=== PATIENT | female | born 1960 | race Caucasian/White ===

== ENCOUNTER 2016-12-13 05:07 | Emergency (ER) | payer OTHER ==
[2016-12-13 05:12] VITALS: BP 171/90; PULSE 107; RESP 18; TEMP 97.8
[2016-12-13] MEDS ORDERED: Acetaminophen-Codeine 300-30mg TAB PO STA (05:30)
[2016-12-13] MEDS ORDERED: predniSONE 20 MG TAB PO STA (05:30)
--- NOTE | 2016-12-13 05:31 | ED ---
General Adult HPI - General Chief complaint: Extremity Injury, Upper Stated complaint: Arm Pain Time Seen by Provider: 12/13/16 05:24 Source: patient, RN notes reviewed, old records reviewed Mode of arrival: ambulatory Limitations: no limitations - History of Present Illness Initial comments: This is a 26-year-old female the ER for evaluation. Patient presents here for evaluation of arm pain shoulder pain. Right shoulder pain. History of shoulder pain. Strain of shoulder. Patient just complains of numbness and tingling in that shoulder. Denies any trauma. - Related Data Home Medications Medication Instructions Recorded Confirmed FLUoxetine HCL [PROzac] 60 mg PO DAILY 11/13/14 12/13/16 OLANZapine [ZyPREXA] 20 mg PO DAILY 11/13/14 12/13/16 Gabapentin [Neurontin] 400 mg PO TID 02/18/15 12/13/16 Previous Rx's Medication Instructions Recorded Acetaminophen with Codeine 1 tab PO Q4H PRN #20 tab 12/13/16 [Tylenol w/codeine #3] predniSONE 50 mg PO DAILY #5 tab 12/13/16 Allergies Allergy/AdvReac Type Severity Reaction Status Date / Time cephalexin monohydrate Allergy Unknown Verified 12/13/16 05:12 [From Keflex] doxycycline Allergy Unknown Verified 12/13/16 05:12 Review of Systems ROS Statement: Those systems with pertinent positive or pertinent negative responses have been documented in the HPI. ROS Other: All systems not noted in ROS Statement are negative. Past Medical History Past Medical History: No Reported History Additional Past Medical History / Comment(s): kidney stones chronic back pain History of Any Multi-Drug Resistant Organisms: None Reported Past Surgical History: Orthopedic Surgery Additional Past Surgical History / Comment(s): chico forearms Past Psychological History: No Psychological Hx Reported, Anxiety, Depression, PTSD Smoking Status: Current every day smoker Past Alcohol Use History: None Reported Past Drug Use History: None Reported General Exam Limitations: no limitations General appearance: alert, in no apparent distress Head exam: Present: atraumatic, normocephalic, normal inspection Eye exam: Present: normal appearance, PERRL, EOMI. Absent: scleral icterus, conjunctival injection, periorbital swelling ENT exam: Present: normal exam, mucous membranes moist Neck exam: Present: normal inspection. Absent: tenderness, meningismus, lymphadenopathy Respiratory exam: Present: normal lung sounds bilaterally. Absent: respiratory distress, wheezes, rales, rhonchi, stridor Cardiovascular Exam: Present: regular rate, normal rhythm, normal heart sounds. Absent: systolic murmur, diastolic murmur, rubs, gallop, clicks GI/Abdominal exam: Present: soft, normal bowel sounds. Absent: distended, tenderness, guarding, rebound, rigid Extremities exam: Present: normal inspection, full ROM, normal capillary refill. Absent: tenderness, pedal edema, joint swelling, calf tenderness Back exam: Present: normal inspection Neurological exam: Present: alert, oriented X3, CN II-XII intact Psychiatric exam: Present: normal affect, normal mood Skin exam: Present: warm, dry, intact, normal color. Absent: rash Course Vital Signs 12/13/16 12/13/16 05:10 06:15 Temperature 97.8 F 97.8 F Pulse Rate 107 H 107 H Respiratory 18 18 Rate Blood Pressure 171/90 171/90 O2 Sat by Pulse 97 97 Oximetry Medical Decision Making - Medical Decision Making 56 female with right shoulder strain, will treat with appropriate medications and discharged home Disposition Clinical Impression: Strain of shoulder Disposition: HOME SELF-CARE Condition: Good Instructions: Rotator Cuff Tendinitis (ED), Shoulder Sprain (ED) Prescriptions: Acetaminophen with Codeine [Tylenol w/codeine #3] 1 tab PO Q4H PRN #20 tab PRN Reason: Pain predniSONE 50 mg PO DAILY #5 tab Referrals: Farnaz Aly MD [Primary Care Provider] - 1-2 days
== END 2016-12-13 06:21 | disposition home or self-care (01) ==
LOC: EC 05:07
DX: S46.911A Strain of unspecified muscle, fascia and tendon at shoulder and upper arm level, right arm, initial encounter (principal); F41.9 Anxiety disorder, unspecified; F32.9 Major depressive disorder, single episode, unspecified; F43.10 Post-traumatic stress disorder, unspecified; F17.200 Nicotine dependence, unspecified, uncomplicated; Z79.899 Other long term (current) drug therapy; Z88.1 Allergy status to other antibiotic agents; W19.XXXA Unspecified fall, initial encounter
CPT/HCPCS: 99283; J7512

== ENCOUNTER 2017-12-30 06:50 | Emergency (ER) | payer OTHER ==
[2017-12-30 06:58] VITALS: BP 171/90; PULSE 85; TEMP 96.9
[2017-12-30] MEDS ORDERED: LORazepam 1 MG TAB PO STA (07:19)
--- NOTE | 2017-12-30 07:25 | ED ---
General Adult HPI - General Chief complaint: Anxiety Stated complaint: Anxiety Time Seen by Provider: 12/30/17 07:12 Source: patient, RN notes reviewed Mode of arrival: ambulatory Limitations: no limitations - History of Present Illness Initial comments: Patient is a pleasant 57-year-old female presenting to the emergency department with concerns regarding her anxiety. Patient does have chronic anxiety. Patient restarted her Zyprexa and Prozac close to 3 weeks ago. Patient does go to [facility] and [facility]. They did not prescribe her anything short-term for anxiety. Patient denies any suicidal or homicidal thoughts. No physical complaints except for her skin picking. Patient requests some medication for this. Patient has recently became homeless. Patient is aware where home shelters are and does check in with him. - Related Data Home Medications Medication Instructions Recorded Confirmed FLUoxetine HCL [PROzac] 60 mg PO DAILY 11/13/14 12/13/16 OLANZapine [ZyPREXA] 20 mg PO DAILY 11/13/14 12/13/16 Gabapentin [Neurontin] 400 mg PO TID 02/18/15 12/13/16 Previous Rx's Medication Instructions Recorded Acetaminophen with Codeine 1 tab PO Q4H PRN #20 tab 12/13/16 [Tylenol w/codeine #3] predniSONE 50 mg PO DAILY #5 tab 12/13/16 Acetaminophen-Codeine 300-30mg 1 tab PO Q4H PRN #20 tablet 05/11/17 [Tylenol #3] Ibuprofen [Motrin] 600 mg PO Q8HR PRN #30 tab 05/11/17 Allergies Allergy/AdvReac Type Severity Reaction Status Date / Time cephalexin monohydrate Allergy Unknown Verified 12/30/17 06:58 [From Keflex] doxycycline Allergy Unknown Verified 12/30/17 06:58 Review of Systems ROS Statement: Those systems with pertinent positive or pertinent negative responses have been documented in the HPI. ROS Other: All systems not noted in ROS Statement are negative. Constitutional: Denies: fever Eyes: Denies: eye pain ENT: Denies: ear pain Respiratory: Denies: cough Cardiovascular: Denies: chest pain Endocrine: Denies: fatigue Gastrointestinal: Denies: abdominal pain Genitourinary: Denies: dysuria Musculoskeletal: Denies: back pain Skin: Reports: lesions (scalp) Neurological: Denies: weakness Psychiatric: Reports: anxiety. Denies: homicidal thoughts, suicidal thoughts Past Medical History Past Medical History: Seizure Disorder Additional Past Medical History / Comment(s): kidney stones chronic back pain History of Any Multi-Drug Resistant Organisms: None Reported Past Surgical History: Orthopedic Surgery Additional Past Surgical History / Comment(s): chico forearms Past Psychological History: No Psychological Hx Reported, Anxiety, Depression, PTSD Smoking Status: Heavy tobacco smoker Past Alcohol Use History: None Reported Past Drug Use History: None Reported General Exam Limitations: no limitations General appearance: alert, in no apparent distress Head exam: Present: atraumatic Eye exam: Present: normal appearance, PERRL ENT exam: Present: normal oropharynx Neck exam: Present: normal inspection Respiratory exam: Present: normal lung sounds bilaterally Cardiovascular Exam: Present: regular rate, normal rhythm GI/Abdominal exam: Present: soft. Absent: tenderness Extremities exam: Present: normal inspection, other (Old well-healed wrist abrasions) Neurological exam: Present: alert Psychiatric exam: Present: normal affect, normal mood Skin exam: Present: other (Scalp with several small areas of skin breakdown a mild erythema. Consistent with picking.) Course Vital Signs 12/30/17 06:55 Temperature 96.9 F L Pulse Rate 85 Respiratory 20 Rate Blood Pressure 171/90 O2 Sat by Pulse 99 Oximetry Disposition Clinical Impression: Acute anxiety Disposition: HOME SELF-CARE Condition: Stable Instructions: Generalized Anxiety Disorder (ED) Additional Instructions: Please follow-up with primary care physician, and [facility] and the next day or 2 for recheck. Use [id number] medicated shampoo with sink such as Selsun Blue her head and shoulders. Return for worsening symptoms , thoughts of self-harm or hurting others, depression, or other concerns. Is patient prescribed a controlled substance at d/c from ED?: No Referrals: [facility] [Primary Care Provider] - 1-2 days Time of Disposition: 07:24
[2017-12-30 07:29] VITALS: RESP 17
== END 2017-12-30 07:38 | disposition home or self-care (01) ==
LOC: EC 06:50
DX: F41.9 Anxiety disorder, unspecified (principal); G40.909 Epilepsy, unspecified, not intractable, without status epilepticus; F32.9 Major depressive disorder, single episode, unspecified; F43.10 Post-traumatic stress disorder, unspecified; F17.200 Nicotine dependence, unspecified, uncomplicated; Z79.899 Other long term (current) drug therapy; Z88.1 Allergy status to other antibiotic agents
CPT/HCPCS: 99283

== ENCOUNTER 2018-05-02 11:39 | Emergency (ER) | payer OTHER ==
[2018-05-02] MEDS ORDERED: SODIUM CHLORIDE 0.9% 1,000 ML IV STA (12:03)
--- NOTE | 2018-05-02 12:08 | ED ---
General Adult HPI - General Chief complaint: Chest Pain Stated complaint: Chest Pain Time Seen by Provider: 05/02/18 11:47 Source: patient, RN notes reviewed Mode of arrival: ambulatory Limitations: no limitations - History of Present Illness Initial comments: Patient 57-year-old female presenting to the emergency room today with chief complaint of right-sided chest pain. She does admit that she's had cough congestion over the last week. Does admit that she's had some sputum production as been dark in color. Patient states that when she takes deep breaths she's had pain in the right side of her ribs. She states this started approximately a week ago as well. She does admit that she is resting comfortably she is pain-free. Patient also admits that she had an episode nausea vomiting after coughing so hard today. Patient denies any other complaints or symptoms. Patient denies any recent fever, chills, shortness of breath, back pain, abdominal pain numbness or tingling, headaches or visual changes, or any other complaints. - Related Data Home Medications Medication Instructions Recorded Confirmed FLUoxetine HCL [PROzac] 40 mg PO DAILY 05/02/18 05/02/18 Gabapentin [Neurontin] 400 mg PO TID 05/02/18 05/02/18 OLANZapine [ZyPREXA] 15 mg PO HS 05/02/18 05/02/18 Previous Rx's Medication Instructions Recorded Albuterol Inhaler [Ventolin Hfa 1 - 2 puff INHALATION Q4-6H PRN #1 05/02/18 Inhaler] inhaler Azithromycin [Zithromax Z-pack] 0 mg PO DIRECTED #6 tab 05/02/18 Benzonatate [Tessalon Perles] 100 mg PO TID PRN #20 capsule 05/02/18 Ibuprofen [Motrin] 600 mg PO Q6HR PRN #30 day 05/02/18 Allergies Allergy/AdvReac Type Severity Reaction Status Date / Time cephalexin monohydrate Allergy Unknown Verified 05/02/18 12:32 [From Keflex] doxycycline Allergy Unknown Verified 05/02/18 12:32 Review of Systems ROS Statement: Those systems with pertinent positive or pertinent negative responses have been documented in the HPI. ROS Other: All systems not noted in ROS Statement are negative. Past Medical History Past Medical History: Seizure Disorder Additional Past Medical History / Comment(s): kidney stones chronic back pain History of Any Multi-Drug Resistant Organisms: None Reported Past Surgical History: Orthopedic Surgery Additional Past Surgical History / Comment(s): chico forearms Past Psychological History: No Psychological Hx Reported, Anxiety, Depression, PTSD Smoking Status: Heavy tobacco smoker Past Alcohol Use History: None Reported Past Drug Use History: None Reported General Exam - General Exam Comments Initial Comments: General: The patient is awake and alert, in no distress, and does not appear acutely ill. Eye: Pupils are equal, round and reactive to light, extra-ocular movements are intact. No nystagmus. There is normal conjunctiva bilaterally. No signs of icterus. Ears, nose, mouth and throat: There are moist mucous membranes and no oral lesions. Neck: The neck is supple, there is no tenderness or JVD. Cardiovascular: There is a regular rate and rhythm. No murmur, rub or gallop is appreciated. Respiratory: Bilateral expiratory wheeze. Respirations are non-labored, breath sounds are equal. No stridor, rales, or rhonchi. Gastrointestinal: Soft, non-distended, non-tender abdomen without masses or organomegaly noted. There is no rebound or guarding present. No CVA tenderness. Musculoskeletal: Normal ROM, no tenderness. Strength 5/5. Sensation intact. Pulses equal bilaterally 2+. Neurological: A&O x 3. CN II-XII intact, There are no obvious motor or sensory deficits. Coordination appears grossly intact. Speech is normal. Skin: Skin is warm and dry and no rashes or lesions are noted. Psychiatric: Cooperative, appropriate mood & affect, normal judgment. Limitations: no limitations Course Vital Signs 05/02/18 05/02/18 05/02/18 11:43 12:54 13:50 Temperature 98.3 F Pulse Rate 108 H 88 92 Respiratory 18 15 18 Rate Blood Pressure 158/111 157/106 172/105 O2 Sat by Pulse 98 95 96 Oximetry 05/02/18 05/02/18 05/02/18 15:15 16:01 16:12 Temperature 97.5 F L Pulse Rate 94 91 90 Respiratory 15 Rate Blood Pressure 167/99 O2 Sat by Pulse 97 Oximetry 05/02/18 16:38 Temperature Pulse Rate 92 Respiratory 18 Rate Blood Pressure 145/97 O2 Sat by Pulse 94 L Oximetry EKG Findings - EKG Comments: EKG Findings:: EKG performed at 1224: Shows normal sinus rhythm at 85 beats per minute. MI 180. QRS is 92. QT/QTC 386/459. No acute ST changes. Medical Decision Making - Medical Decision Making Patient's CT of the chest reviewed and shows no evidence of PE. Mild central lobular pulmonary emphysema and minimal bibasilar. Bronchial cuffing that can be seen in reactive small airway disease with possible underlying emphysema or bronchitis/infectious airway disease. Patient given dose of Rocephin here in the emergency room. Patient has had 2 troponins here in the emergency room which are negative. Patient's pain is felt to be muscular skeletal she's had increased cough congestion and states that when she is laying still she is pain- free. She states pain is reproduced with deep breath and with coughing. Patient will be treated with anti-inflammatories for pain. Continued on antibiotics to cover for infection with azithromycin. Will be given an albuterol inhaler along with cough medication for her symptoms. She is advised follow-up family doctor over the next 2 days returning if symptoms increase or worsen. - Lab Data Result diagrams: 05/02/18 12:40 05/02/18 12:40 Lab Results 05/02/18 05/02/18 05/02/18 Range/Units 12:40 12:40 12:40 WBC 6.5 (3.8-10.6) k/uL RBC 4.89 (3.80-5.40) m/uL Hgb 13.9 (11.4-16.0) gm/dL Hct 41.7 (34.0-46.0) % MCV 85.3 (80.0-100.0) fL MCH 28.3 (25.0-35.0) pg MCHC 33.2 (31.0-37.0) g/dL RDW 15.5 (11.5-15.5) % Plt Count 284 (150-450) k/uL Neutrophils % 60 % Lymphocytes % 25 % Monocytes % 10 % Eosinophils % 2 % Basophils % 1 % Neutrophils # 3.9 (1.3-7.7) k/uL Lymphocytes # 1.6 (1.0-4.8) k/uL Monocytes # 0.6 (0-1.0) k/uL Eosinophils # 0.1 (0-0.7) k/uL Basophils # 0.0 (0-0.2) k/uL PT 9.4 (9.0-12.0) sec INR 0.9 (<1.2) APTT 23.1 (22.0-30.0) sec D-Dimer 0.37 (<0.60) mg/L FEU Sodium 143 (137-145) mmol/L Potassium 4.3 (3.5-5.1) mmol/L Chloride 105 (98-107) mmol/L Carbon Dioxide 31 H (22-30) mmol/L Anion Gap 7 mmol/L BUN 20 H (7-17) mg/dL Creatinine 0.64 (0.52-1.04) mg/dL Est GFR (CKD-EPI)AfAm >90 (>60 ml/min/1.73 sqM) Est GFR (CKD-EPI)NonAf >90 (>60 ml/min/1.73 sqM) Glucose 90 (74-99) mg/dL Calcium 9.9 (8.4-10.2) mg/dL Total Bilirubin 0.4 (0.2-1.3) mg/dL AST 43 H (14-36) U/L ALT 63 H (9-52) U/L Alkaline Phosphatase 112 (38-126) U/L Total Creatine Kinase (30-135) U/L CK-MB (CK-2) (0.0-2.4) ng/mL CK-MB (CK-2) Rel Index Troponin I (0.000-0.034) ng/mL Total Protein 8.0 (6.3-8.2) g/dL Albumin 4.3 (3.5-5.0) g/dL Urine Color Urine Appearance (Clear) Urine pH (5.0-8.0) Ur Specific Sewell (1.001-1.035) Urine Protein (Negative) Urine Glucose (UA) (Negative) Urine Ketones (Negative) Urine Blood (Negative) Urine Nitrite (Negative) Urine Bilirubin (Negative) Urine Urobilinogen (<2.0) mg/dL Ur Leukocyte Esterase (Negative) Urine RBC (0-5) /hpf Urine WBC (0-5) /hpf Ur Squamous Epith Cells (0-4) /hpf Amorphous Sediment (None) /hpf Urine Mucus (None) /hpf 11/26/18 11/26/18 11/26/18 Range/Units 12:40 12:40 15:40 WBC (3.8-10.6) k/uL RBC (3.80-5.40) m/uL Hgb (11.4-16.0) gm/dL Hct (34.0-46.0) % MCV (80.0-100.0) fL MCH (25.0-35.0) pg MCHC (31.0-37.0) g/dL RDW (11.5-15.5) % Plt Count (150-450) k/uL Neutrophils % % Lymphocytes % % Monocytes % % Eosinophils % % Basophils % % Neutrophils # (1.3-7.7) k/uL Lymphocytes # (1.0-4.8) k/uL Monocytes # (0-1.0) k/uL Eosinophils # (0-0.7) k/uL Basophils # (0-0.2) k/uL PT (9.0-12.0) sec INR (<1.2) APTT (22.0-30.0) sec D-Dimer (<0.60) mg/L FEU Sodium (137-145) mmol/L Potassium (3.5-5.1) mmol/L Chloride (98-107) mmol/L Carbon Dioxide (22-30) mmol/L Anion Gap mmol/L BUN (7-17) mg/dL Creatinine (0.52-1.04) mg/dL Est GFR (CKD-EPI)AfAm (>60 ml/min/1.73 sqM) Est GFR (CKD-EPI)NonAf (>60 ml/min/1.73 sqM) Glucose (74-99) mg/dL Calcium (8.4-10.2) mg/dL Total Bilirubin (0.2-1.3) mg/dL AST (14-36) U/L ALT (9-52) U/L Alkaline Phosphatase (38-126) U/L Total Creatine Kinase 36 (30-135) U/L CK-MB (CK-2) 0.7 (0.0-2.4) ng/mL CK-MB (CK-2) Rel Index 1.9 Troponin I <0.012 <0.012 (0.000-0.034) ng/mL Total Protein (6.3-8.2) g/dL Albumin (3.5-5.0) g/dL Urine Color Light Yellow Urine Appearance Cloudy H (Clear) Urine pH 7.0 (5.0-8.0) Ur Specific [place]ell 1.015 (1.001-1.035) Urine Protein Negative (Negative) Urine Glucose (UA) Negative (Negative) Urine Ketones Negative (Negative) Urine Blood Trace H (Negative) Urine Nitrite Negative (Negative) Urine Bilirubin Negative (Negative) Urine Urobilinogen <2.0 (<2.0) mg/dL Ur Leukocyte Esterase Negative (Negative) Urine RBC 5 (0-5) /hpf Urine WBC 3 (0-5) /hpf Ur Squamous Epith Cells <1 (0-4) /hpf Amorphous Sediment Few H (None) /hpf Urine Mucus Rare H (None) /hpf Disposition Clinical Impression: Acute bronchitis Disposition: HOME SELF-CARE Condition: Good Instructions: Acute Bronchitis (ED) Additional Instructions: Please use medication as discussed. Please follow-up with family doctor in the next 2 days of symptoms have not improved. Please return to emergency room if the symptoms increase or worsen or for any other concerns. Prescriptions: Albuterol Inhaler [Ventolin Hfa Inhaler] 1 - 2 puff INHALATION Q4-6H PRN #1 inhaler PRN Reason: Cough Azithromycin [Zithromax Z-pack] 0 mg PO DIRECTED #6 tab Benzonatate [Tessalon Perles] 100 mg PO TID PRN #20 capsule PRN Reason: Cough Ibuprofen [Motrin] 600 mg PO Q6HR PRN #30 day PRN Reason: Pain Is patient prescribed a controlled substance at d/c from ED?: No Referrals: [facility] [Primary Care Provider] - 1-2 days Time of Disposition: 16:45
[2018-05-02 13:02] LABS: Basophils % (A) 1 %; Eosinophils # (A) 0.1 k/uL (0-0.7); Eosinophils % (A) 2 %; HCT 41.7 % (34.0-46.0); HGB 13.9 gm/dL (11.4-16.0); Lymphocytes # (A) 1.6 k/uL (1.0-4.8); Lymphocytes % (A) 25 %; MCH 28.3 pg (25.0-35.0); MCHC 33.2 g/dL (31.0-37.0); MCV 85.3 fL (80.0-100.0); Mean Platelet Volume 6.8; Monocytes # (A) 0.6 k/uL (0-1.0); Monocytes % (A) 10 %; Neutrophils # (A) 3.9 k/uL (1.3-7.7); Neutrophils % (A) 60 %; Platelet Count 284 k/uL (150-450); RBC 4.89 m/uL (3.80-5.40); RDW 15.5 % (11.5-15.5); WBC 6.5 k/uL (3.8-10.6)
[2018-05-02 13:06] LABS: Amorphous Sediment,Urine Few /hpf; Appearance,Urine Cloudy (Clear); Bilirubin,Urine Negative (Negative); Blood,Urine Trace (Negative); Color,Urine Light Yellow; Glucose,Urine (UA) Negative (Negative); Ketones,Urine Negative (Negative); Leukocyte Esterase,Urine Negative (Negative); Mucus,Urine Rare /hpf; Nitrite,Urine Negative (Negative); Protein,Urine Negative (Negative); RBC,Urine 5 /hpf (0-5); Specific Gravity,Urine 1.015 (1.001-1.035); Squamous Epithelial Cell,Urine <1 /hpf (0-4); Urobilinogen,Urine <2.0 mg/dL (<2.0)
[2018-05-02 13:08] LABS: ALT 63 U/L (9-52); AST 43 U/L (14-36); Albumin 4.3 g/dL (3.5-5.0); Alkaline Phosphatase 112 U/L (38-126); Anion Gap 7 mmol/L; Blood Urea Nitrogen 20 mg/dL (7-17); Calcium 9.9 mg/dL (8.4-10.2); Carbon Dioxide 31 mmol/L (22-30); Chloride 105 mmol/L (98-107); Glucose 90 mg/dL (74-99); Potassium 4.3 mmol/L (3.5-5.1); Sodium 143 mmol/L (137-145); Total Bilirubin 0.4 mg/dL (0.2-1.3)
--- NOTE | 2018-05-02 13:14 | XR ---
EXAMINATION TYPE: XR chest 2V DATE OF EXAM: 05/02/2018 COMPARISON: 08/30/2015 HISTORY: Chest pain TECHNIQUE: Frontal and lateral views of the chest are obtained. FINDINGS: There is no focal air space opacity, pleural effusion, or pneumothorax seen. There is haris ntration of the right hemidiaphragm. The cardiac silhouette size is within normal limits. The osseo us structures are intact. IMPRESSION: No acute cardiopulmonary process.
[2018-05-02 13:18] LABS: Creatine Kinase 36 U/L (30-135)
[2018-05-02 13:20] LABS: D-Dimer 0.37 mg/L FEU (<0.60); INR 0.9 (<1.2); Partial Thromboplastin Time 23.1 sec (22.0-30.0); Prothrombin Time 9.4 sec (9.0-12.0)
[2018-05-02 13:31] LABS: Creatine Kinase MB 0.7 ng/mL (0.0-2.4); Troponin I <0.012 ng/mL (0.000-0.034)
[2018-05-02] MEDS ORDERED: LISINOPRIL 10 MG TAB PO STA (14:03)
[2018-05-02] MEDS ORDERED: IPRATROPIUM-ALBUTEROL 3 ML NEB INHALATION STA (15:14)
[2018-05-02 15:18] VITALS: TEMP 97.5
--- NOTE | 2018-05-02 15:56 | CT ---
EXAMINATION TYPE: CT angio chest DATE OF EXAM: 05/02/2018 COMPARISON: Chest radiograph dated 05/02/2018. HISTORY: Chest pain and difficulty breathing. CT DLP: 241.9 mGycm. Automated Exposure Control for Dose Reduction was Utilized. CONTRAST: CTA scan of the thorax is performed with IV Contrast, patient injected with 62 mL of Isovue 370, pulm onary embolism protocol. MIP Images are created on CT scanner and reviewed. FINDINGS: LUNGS: Mild centrilobular emphysematous changes are most exaggerated at the lung apices. Minimal biba silar subsegmental dependent atelectasis is appreciated in addition to bibasilar minimal peribronchia l cuffing. Scattered blebs are noted in the left lower lobe. There is no pleural effusion or pneumoth orax seen. The tracheobronchial tree is patent. MEDIASTINUM: There is satisfactory enhancement of the pulmonary artery and its branches, there is no CT evidence for pulmonary embolism. There are no greater than 1 cm hilar or mediastinal lymph nodes. No cardiomegaly or pericardial effusion is seen. OTHER: Evaluation of the liver is limited on the angiographic phase. Minimal multilevel degenerative changes of the thoracic spine are seen. IMPRESSION: 1. No evidence of pulmonary embolus. 2. Mild centrilobular pulmonary emphysema and minimal bibasilar peribronchial cuffing that can be see n in reactive small airway disease in this patient with underlying emphysema or bronchitis/infectious airway disease.
[2018-05-02] MEDS ORDERED: KETOROLAC 30 MG/ML 1 ML VIAL IVP STA (16:40)
[2018-05-02 17:20] VITALS: BP 145/73; PULSE 90; RESP 20
== END 2018-05-02 17:25 | disposition home or self-care (01) ==
LOC: EC 11:39
DX: J20.9 Acute bronchitis, unspecified (principal); F41.9 Anxiety disorder, unspecified; F32.9 Major depressive disorder, single episode, unspecified; G40.909 Epilepsy, unspecified, not intractable, without status epilepticus; F17.200 Nicotine dependence, unspecified, uncomplicated; Z79.899 Other long term (current) drug therapy
CPT/HCPCS: 36415; 94640; 93005; 85379; 80053; 82550; 82553; 84484; 85025; 85610; 85730; 81001; 71046; 71275; 99285; 96365; 96375; 96361; J0696; J1885; Q9967

== ENCOUNTER 2018-08-04 10:36 | Emergency (ER) | payer OTHER ==
[2018-08-04 11:00] VITALS: TEMP 98.2
[2018-08-04] MEDS ORDERED: SODIUM CHLORIDE 0.9% 1,000 ML IV STA (11:23)
--- NOTE | 2018-08-04 11:35 | ED ---
Nausea/Vomiting/Diarrhea HPI - General Chief complaint: Nausea/Vomiting/Diarrhea Stated complaint: diarrhea Time Seen by Provider: 08/04/18 11:19 Source: patient, RN notes reviewed Mode of arrival: ambulatory Limitations: no limitations - History of Present Illness Initial comments: 57-year-old female presents emergency Department with chief complaint of increasing diarrhea. Patient states that she's had symptoms on and off for last 6 weeks. Patient states that she's noticed with eating especially fatty greasy food that she has worsening symptoms. Patient states it's concerns to all watery. She denies any melena or hematochezia no recent antibiotic use no history of bowel infections including C. diff, colitis. Patient denies any localized pain medication and she has some right quadrant pain. Patient denies any fever, chills, chest pain, shortness breath. She states she just feels rundown from her diarrhea. - Related Data Home Medications Medication Instructions Recorded Confirmed FLUoxetine HCL [PROzac] 60 mg PO DAILY 05/02/18 08/04/18 Atorvastatin [Lipitor] 20 mg PO HS 08/04/18 08/04/18 Ergocalciferol (Vitamin D2) 50,000 unit PO Q7D 08/04/18 08/04/18 [Vitamin D2] Gabapentin 600 mg PO TID 08/04/18 08/04/18 Lisinopril [Zestril] 10 mg PO DAILY 08/04/18 08/04/18 hydrOXYzine PAMOATE [Vistaril] 25 mg PO TID 08/04/18 08/04/18 traZODone HCL [Desyrel] 300 mg PO HS 08/04/18 08/04/18 Allergies Allergy/AdvReac Type Severity Reaction Status Date / Time cephalexin monohydrate Allergy Unknown Verified 08/04/18 11:33 [From Keflex] doxycycline Allergy Unknown Verified 08/04/18 11:33 Review of Systems ROS Statement: Those systems with pertinent positive or pertinent negative responses have been documented in the HPI. ROS Other: All systems not noted in ROS Statement are negative. Past Medical History Past Medical History: Seizure Disorder Additional Past Medical History / Comment(s): kidney stones chronic back pain History of Any Multi-Drug Resistant Organisms: None Reported Past Surgical History: Orthopedic Surgery Additional Past Surgical History / Comment(s): chico forearms Past Psychological History: No Psychological Hx Reported, Anxiety, Depression, PTSD Smoking Status: Heavy tobacco smoker Past Alcohol Use History: None Reported Past Drug Use History: None Reported General Exam Limitations: no limitations General appearance: alert, in no apparent distress Head exam: Present: atraumatic, normocephalic, normal inspection Eye exam: Present: normal appearance, PERRL, EOMI. Absent: scleral icterus, conjunctival injection, periorbital swelling ENT exam: Present: normal exam, normal oropharynx, mucous membranes moist Neck exam: Present: normal inspection. Absent: tenderness, meningismus, lymphadenopathy Respiratory exam: Present: normal lung sounds bilaterally. Absent: respiratory distress, wheezes, rales, rhonchi, stridor Cardiovascular Exam: Present: regular rate, normal rhythm, normal heart sounds. Absent: systolic murmur, diastolic murmur, rubs, gallop, clicks GI/Abdominal exam: Present: soft, tenderness, normal bowel sounds. Absent: distended, guarding, rebound, rigid Back exam: Absent: CVA tenderness (R), CVA tenderness (L) Neurological exam: Present: alert, oriented X3, CN II-XII intact Skin exam: Present: warm, dry, intact, normal color. Absent: rash Course Vital Signs 08/04/18 08/04/18 10:58 12:25 Temperature 98.2 F Pulse Rate 75 59 L Respiratory 16 14 Rate Blood Pressure 124/78 120/81 O2 Sat by Pulse 95 98 Oximetry Medical Decision Making - Medical Decision Making 57-year-old female presents emergency Department chief complaint of diarrhea and intermittent worse with eating. Ultrasound shows multiple gallstones consider HIDA scan. Laboratory unremarkable. Patient will follow-up on-call surgery Dr. Jennings. Return parameters were discussed. - Lab Data Result diagrams: 08/04/18 11:54 08/04/18 11:54 Lab Results 08/04/18 08/04/18 Range/Units 11:54 11:54 WBC 5.1 (3.8-10.6) k/uL RBC 4.81 (3.80-5.40) m/uL Hgb 13.4 (11.4-16.0) gm/dL Hct 41.1 (34.0-46.0) % MCV 85.3 (80.0-100.0) fL MCH 27.9 (25.0-35.0) pg MCHC 32.7 (31.0-37.0) g/dL RDW 14.4 (11.5-15.5) % Plt Count 227 (150-450) k/uL Neutrophils % 57 % Lymphocytes % 31 % Monocytes % 7 % Eosinophils % 2 % Basophils % 1 % Neutrophils # 2.9 (1.3-7.7) k/uL Lymphocytes # 1.6 (1.0-4.8) k/uL Monocytes # 0.4 (0-1.0) k/uL Eosinophils # 0.1 (0-0.7) k/uL Basophils # 0.0 (0-0.2) k/uL Sodium 140 (137-145) mmol/L Potassium 4.1 (3.5-5.1) mmol/L Chloride 108 H (98-107) mmol/L Carbon Dioxide 25 (22-30) mmol/L Anion Gap 7 mmol/L BUN 19 H (7-17) mg/dL Creatinine 0.99 (0.52-1.04) mg/dL Est GFR (CKD-EPI)AfAm 74 (>60 ml/min/1.73 sqM) Est GFR (CKD-EPI)NonAf 65 (>60 ml/min/1.73 sqM) Glucose 100 H (74-99) mg/dL Calcium 9.7 (8.4-10.2) mg/dL Total Bilirubin 0.5 (0.2-1.3) mg/dL AST 17 (14-36) U/L ALT 27 (9-52) U/L Alkaline Phosphatase 89 (38-126) U/L Total Protein 7.2 (6.3-8.2) g/dL Albumin 4.2 (3.5-5.0) g/dL Lipase 67 (23-300) U/L Disposition Clinical Impression: Cholelithiasis, Diarrhea Disposition: HOME SELF-CARE Condition: Stable Instructions (If sedation given, give patient instructions): Acute Diarrhea (ED ), Gallstones (ED) Additional Instructions: Please return to the Emergency Department if symptoms worsen or any other concerns. Is patient prescribed a controlled substance at d/c from ED?: No [facility] - 1-2 days Dash Jennings MD [STAFF PHYSICIAN] - 1-2 days
[2018-08-04 12:19] LABS: Basophils % (A) 1 %; Eosinophils # (A) 0.1 k/uL (0-0.7); Eosinophils % (A) 2 %; HCT 41.1 % (34.0-46.0); HGB 13.4 gm/dL (11.4-16.0); Lymphocytes # (A) 1.6 k/uL (1.0-4.8); Lymphocytes % (A) 31 %; MCH 27.9 pg (25.0-35.0); MCHC 32.7 g/dL (31.0-37.0); MCV 85.3 fL (80.0-100.0); Mean Platelet Volume 6.9; Monocytes # (A) 0.4 k/uL (0-1.0); Monocytes % (A) 7 %; Neutrophils # (A) 2.9 k/uL (1.3-7.7); Neutrophils % (A) 57 %; Platelet Count 227 k/uL (150-450); RBC 4.81 m/uL (3.80-5.40); RDW 14.4 % (11.5-15.5); WBC 5.1 k/uL (3.8-10.6)
[2018-08-04 12:22] LABS: Albumin 4.2 g/dL (3.5-5.0); Calcium 9.7 mg/dL (8.4-10.2); Potassium 4.1 mmol/L (3.5-5.1); Total Bilirubin 0.5 mg/dL (0.2-1.3); Total Protein 7.2 g/dL (6.3-8.2)
[2018-08-04 12:48] VITALS: RESP 14
--- NOTE | 2018-08-04 13:08 | US ---
EXAMINATION TYPE: US abdomen limited DATE OF EXAM: 08/04/2018 COMPARISON: CT from 2015 CLINICAL HISTORY: Pain. Intermittent nausea and diarrhea x 6 weeks, occasional abdominal cramping, lo ss of appetite. EXAM MEASUREMENTS: Liver Length: 14.9 cm Gallbladder Wall: 0.2 cm CBD: 0.4 cm Right Kidney: 9.8 x 4.9 x 4.6 cm Pancreas: visualized portions wnl, limited by overlying midline bowel gas Liver: wnl Gallbladder: cholelithiasis Evidence for sonographic Walsh's sign: yes CBD: visualized portions wnl, limited by overlying bowel gas Right Kidney: wnl Visualized pancreas is slightly heterogeneous without mass or ductal dilatation. Portions are secured by overlying bowel gas on images saved. IVC is seen near hepatic dome. Visualized liver is slightly heterogeneous without mass or ductal dilatation. Gallbladder is seen with shadowing mobile gallstones . No pericholecystic fluid or abnormal gallbladder wall thickening is present. Limited images right k idney show no gross hydronephrosis. IMPRESSION: Gallstones without imaging secondary ultrasound evidence for acute cholecystitis. Sonogra phic Walsh's sign is however positive. Consider HIDA scan to further evaluate.
[2018-08-04 13:49] VITALS: BP 147/100; PULSE 74
== END 2018-08-04 13:48 | disposition home or self-care (01) ==
LOC: EC 10:36
DX: K80.20 Calculus of gallbladder without cholecystitis without obstruction (principal); R19.7 Diarrhea, unspecified; G40.909 Epilepsy, unspecified, not intractable, without status epilepticus; F32.9 Major depressive disorder, single episode, unspecified; F41.9 Anxiety disorder, unspecified; F43.10 Post-traumatic stress disorder, unspecified; F17.200 Nicotine dependence, unspecified, uncomplicated; Z79.899 Other long term (current) drug therapy; Z88.1 Allergy status to other antibiotic agents
CPT/HCPCS: 36415; 76705; 80053; 83690; 85025; 96360; 96361; 99284

== ENCOUNTER 2018-08-11 06:53 | Day surgery (SDC) | payer OTHER ==
[2018-08-05 11:38] VITALS: BMI 26.6
[~2018-08-11 06:53] MED LIST: DEXAMETHASONE SOD PHOSPHATE 10 MG/ML 1 ML VIAL IV ONE; HEPARIN SODIUM,PORCINE 5,000 UNIT/ML 1 ML VIAL SQ ONE; LACTATED RINGERS 1,000 ML IV SCH; LIDOCAINE 1% 20 ML VIAL (10MG/ML) FOR IV START INTRADERMA PRN; MIDAZOLAM (PF) 2 MG/2 ML VIAL IV PRN; ceFAZolin IN SWFI 2 GM/20 ML SYRINGE IVP ONE; fentaNYL (PF) 50 MCG/ML 2 ML AMP IV PRN
[2018-08-11] MEDS ORDERED: ONDANSETRON 4 MG/2 ML VIAL IVP ONE (07:32)
[2018-08-11] MEDS ORDERED: DEXAMETHASONE SOD PHOSPHATE 10 MG/ML 1 ML VIAL IV ONE (07:32)
--- NOTE | 2018-08-11 07:52 | P.GSHP ---
History of Present Illness H&P Date: 08/11/18 Chief Complaint: Right upper quadrant pain, gallstones This is a 57-year-old female who presents today for laparoscopic cholecystectomy. Patient has complaints of right upper quadrant pain. She is found have gallstones on workup.. Past Medical History Past Medical History: Seizure Disorder Additional Past Medical History / Comment(s): kidney stones, chronic back pain. PAST HX OF 2 SEIZURES-LAST ONE WAS OVER A YEAR AGO-STATES WAS PROBABLY DRUG INDUCED R/T CRACK History of Any Multi-Drug Resistant Organisms: None Reported Past Surgical History: Orthopedic Surgery Additional Past Surgical History / Comment(s): chico forearms-PLATES AND SCREWS Past Anesthesia/Blood Transfusion Reactions: No Reported Reaction Smoking Status: Heavy tobacco smoker - Past Family History Mother Family Medical History: No Reported History Medications and Allergies Home Medications Medication Instructions Recorded Confirmed Type FLUoxetine HCL [PROzac] 60 mg PO DAILY 05/02/18 08/05/18 History Atorvastatin [Lipitor] 20 mg PO HS 08/04/18 08/11/18 History Ergocalciferol (Vitamin D2) 50,000 unit PO TU 08/04/18 08/05/18 History [Vitamin D2] Gabapentin 600 mg PO TID 08/04/18 08/05/18 History Lisinopril [Zestril] 10 mg PO DAILY 08/04/18 08/05/18 History hydrOXYzine PAMOATE [Vistaril] 25 mg PO TID 08/04/18 08/05/18 History traZODone HCL [Desyrel] 300 mg PO HS 08/04/18 08/05/18 History Allergies Allergy/AdvReac Type Severity Reaction Status Date / Time cephalexin monohydrate Allergy Rash/Hives Verified 08/11/18 07:03 [From Keflex] doxycycline Allergy Rash/Hives Verified 08/11/18 07:03 Surgical - Exam Vital Signs Temp Pulse Resp BP Pulse Ox 97.7 F 75 16 127/72 94 L 08/11/18 07:19 08/11/18 07:19 08/11/18 07:19 08/11/18 07:19 08/11/18 07:19 - General well developed, well nourished, no distress - Eyes PERRL - ENT normal pinna - Neck no masses - Respiratory normal expansion - Cardiovascular Rhythm: regular - Abdomen Mild right upper quadrant pain Abdomen: soft Assessment and Plan Assessment: Right upper quadrant pain Cholelithiasis We'll perform laparoscopic cholecystectomy.
[2018-08-11] MEDS ORDERED: NEOSTIGMINE 1 MG/ML 10 ML VIAL ONE (07:55)
[2018-08-11] MEDS ORDERED: ROCURONIUM BROMIDE 10 MG/ML 10 ML VIAL IV ONE (07:55)
[2018-08-11] MEDS ORDERED: LIDOCAINE 1% INJ 10MG/ML (20 ML MDV) ONE (07:55)
[2018-08-11] MEDS ORDERED: fentaNYL (PF) 50 MCG/ML 2 ML AMP ONE (07:55)
[2018-08-11] MEDS ORDERED: MIDAZOLAM 2 MG/2 ML VIAL ONE (07:55)
[2018-08-11] MEDS ORDERED: SUCCINYLCHOLINE CHLORIDE 100 MG/5 ML SYR IV ONE (07:55)
[2018-08-11] MEDS ORDERED: PROPOFOL 10 MG/ML 20 ML VIAL IV ONE (07:55)
[2018-08-11] MEDS ORDERED: GLYCOPYRROLATE 0.2 MG/ML 2 ML VIAL ONE (07:55)
[2018-08-11] MEDS ORDERED: BUPIVACAIN-EPI 0.25%-1:200,000 30 ML VIAL SQ ONE (08:15)
[2018-08-11] MEDS ORDERED: LACTATED RINGERS 1,000 ML IV ONE (08:36)
[2018-08-11 08:59] VITALS: TEMP 96.9
[2018-08-11] MEDS: HYDROmorphone 1 MG/ML 1 ML SYRINGE IVP ONE ×2 (09:05→09:10)
[2018-08-11 09:13] VITALS: RESP 16
[2018-08-11] MEDS ORDERED: HYDROcodone/APAP 7.5-325MG 1 EACH TAB PO ONE (10:23)
[2018-08-11 11:02] VITALS: BP 115/78; PULSE 80
--- NOTE | 2018-08-20 10:15 | P.OP ---
Date of Procedure: 08/11/18 Preoperative Diagnosis: Cholecystitis Cholelithiasis Postoperative Diagnosis: Cholecystitis Cholelithiasis Procedure(s) Performed: Laparoscopic cholecystectomy Anesthesia: MICAELA Surgeon: Dash Jennings Estimated Blood Loss (ml): 5 Pathology: other (Gallbladder) Condition: stable Disposition: PACU Description of Procedure: The patient was placed on the operating table. The patient received a general endotracheal tube anesthesia. The patients abdomen was prepped and draped in the usual sterile fashion. Through an infraumbilical stab incision, the fascia of the anterior abdominal wall was grasped with a pair of Kochers and then the Veress needle was placed in the peritoneal cavity. Position of the Veress needle was confirmed with positive drop test. The abdomen was then insufflated. After adequate insufflation, the 10 mm trocar was placed in the peritoneal cavity. Following this the laparoscope was placed in the peritoneal cavity. The patient was placed in the head-up, right side up position and then a 5 mm trocar was placed in the right lateral and right subcostal position under direct visualization. A 8 mm trocar was placed in the epigastric position. The gallbladder was grasped in the fundus and infundibulum. Traction on the gallbladder was placed in the lateral and the cephalad positions. The triangle of Calot was visualized.. The cystic duct was bluntly dissected until the union of the cystic duct and common bile duct wa s seen. The cystic duct was then divided and sealed with the Harmonic scissors. A PDS Endoloop was then placed throughout the cystic duct stump. The cystic artery divided and sealed with the Harmonic scissors. The gallbladder was then removed from the liver bed using Harmonic scissors. The gallbladder was then extracted through the epigastric port site. Operative field was checked for any bleeding spots and Harmonic scissors was used to coagulate the liver bed. The abdomen was irrigated. The trocars were removed. The skin was closed using interrupted 3-0 Vicryl suture. Dermabond dressing were applied. The patient tolerated the procedure well.
== END 2018-08-11 11:34 | disposition home or self-care (01) ==
LOC: OR 06:53
PROVIDERS: ATTEND Surgery
DX: K80.10 Calculus of gallbladder with chronic cholecystitis without obstruction (principal); G40.909 Epilepsy, unspecified, not intractable, without status epilepticus; G89.29 Other chronic pain; Z87.442 Personal history of urinary calculi; Z88.1 Allergy status to other antibiotic agents; E78.5 Hyperlipidemia, unspecified; J44.9 Chronic obstructive pulmonary disease, unspecified; F39 Unspecified mood [affective] disorder; Z79.899 Other long term (current) drug therapy
CPT/HCPCS: 88304; 47562; J2250 ×2; J1644; J1100; J2710; J2405; J2001; J3010; J1170; J0330; J2704; J0690

== ENCOUNTER 2018-09-25 12:26 | Emergency (ER) | payer OTHER ==
[2018-09-25 12:36] VITALS: TEMP 97.1
[2018-09-25] MEDS ORDERED: SODIUM CHLORIDE 0.9% 1,000 ML IV STA ×3 (12:46→14:49)
--- NOTE | 2018-09-25 12:49 | ED ---
General Adult HPI - General Chief complaint: Abdominal Pain Stated complaint: Abd pain Time Seen by Provider: 09/25/18 12:36 Source: patient, EMS Mode of arrival: EMS Limitations: no limitations - History of Present Illness Initial comments: Dictation was produced using [employer] dictation software. please excuse any grammatical, word or spelling errors. Chief Complaint: 57-year-old female presents today for nausea vomiting diarrhea. History of Present Illness: 57-year-old female. She is brought in by EMS. Patient was brought into the emergency department for nausea vomiting diarrhea. Patient has also been feeling slightly lethargic. Patient believes that she had a seizure sometime today. One month ago patient had her gallbladder removed. Since then patient has been feeling otherwise well. Yesterday she had a relapse with illicit drug use. Patient smoked crack. Over the last 2-3 days patient has been having nausea vomiting diarrhea. Patient states that her diarrhea is black and tarry. The ROS documented in this emergency department record has been reviewed and confirmed by me. Those systems with pertinent positive or negative responses have been documented in the HPI. All other systems are other negative and/or noncontributory. PHYSICAL EXAM: General Impression: Alert and oriented x3, not in acute distress, pale HEENT: Normocephalic atraumatic, extra-ocular movements intact, pupils equal and reactive to light bilaterally, mucous membranes moist, subconjunctival pallor Cardiovascular: Heart regular rate and rhythm, S1&S2 audible, no murmurs, rubs or gallops Chest: Lungs clear to auscultation bilaterally, no rhonchi, no wheeze, no rales Abdomen: Bowel sounds present, abdomen soft, non-tender, non-distended, no organomegaly Musculoskeletal: Pulses present and equal in all extremities, no peripheral edema Motor: no focal deficits noted Neurological: CN II-XII grossly intact, no focal motor or sensory deficits noted Skin: Intact with no visualized rashes Psych: Normal affect and mood ED course: 57-year-old female presents with chief complaint of nausea vomiting diarrhea. As upon arrival shows blood pressure 60/45, worse vital signs within acceptable limits.Laboratory evaluation obtained. CBC unremarkable. Coag panel unremarkable. Metabolic panel was obtained. Potassium is 2.9. There is a mild non-gap acidosis. Patient has findings of acute kidney injury with a creatinine of 2.3. Glucose is 100. Rest of labs are grossly unremarkable. Cardiac enzymes negative. Stool occult is negative. Patient given 2 boluses of intravenous fluids with dramatic improvement of blood pressure. Clinical presentation is consistent with severe dehydration with acute kidney injury likely secondary to acute tubular necrosis from dehydration. Discussed patient case in detail with sound physician Dr. Covarrubias. He is concerned that somehow this is related to seizures given that patient reports that she may have had a seizure. He does not feel that patient is appropriate for admission to our facility given that we currently do not have a neurologist. After obtaining HPI I doubt that patient's primary issue is seizure and more or less related to dehydration. Patient states she was conscious throughout the whole event. Patient be transferred to [facility] for further intervention. There are also pending labs. Pending urine studies and blood culture. At this point patient's clinical presentation is consistent with dehydration, acute kidney injury. EKG interpretation: Ventricular rate 77, normal sinus rhythm, DC interval 170, QS 90, QTC 475. No DC prolongation, no QTC prolongation, no ST or T-wave changes noted. Overall, this EKG is unremarkable - Related Data Home Medications Medication Instructions Recorded Confirmed FLUoxetine HCL [PROzac] 60 mg PO DAILY 05/02/18 09/25/18 Atorvastatin [Lipitor] 20 mg PO HS 08/04/18 09/25/18 Gabapentin 600 mg PO TID 08/04/18 09/25/18 Lisinopril [Zestril] 10 mg PO DAILY 08/04/18 09/25/18 hydrOXYzine PAMOATE [Vistaril] 25 mg PO TID 08/04/18 09/25/18 Cyanocobalamin (Vitamin B-12) 1,000 mcg PO DAILY 09/25/18 09/25/18 [Vitamin B-12] [place]-3 Fatty Acids/Fish Oil [Fish 1 cap PO DAILY 09/25/18 09/25/18 Oil 1,000 mg Softgel] Ranitidine HCl [Zantac] 150 mg PO BID 09/25/18 09/25/18 Allergies Allergy/AdvReac Type Severity Reaction Status Date / Time cephalexin monohydrate Allergy Rash/Hives Verified 09/25/18 13:38 [From [employer]] doxycycline Allergy Rash/Hives Verified 09/25/18 13:38 Review of Systems ROS Statement: Those systems with pertinent positive or pertinent negative responses have been documented in the HPI. ROS Other: All systems not noted in ROS Statement are negative. Past Medical History Past Medical History: Seizure Disorder Additional Past Medical History / Comment(s): kidney stones, chronic back pain. PAST HX OF 2 SEIZURES-LAST ONE WAS OVER A YEAR AGO-STATES WAS PROBABLY DRUG INDUCED R/T CRACK History of Any Multi-Drug Resistant Organisms: None Reported Past Surgical History: Cholecystectomy, Orthopedic Surgery Additional Past Surgical History / Comment(s): chico forearms-PLATES AND SCREWS Past Anesthesia/Blood Transfusion Reactions: No Reported Reaction Past Psychological History: Anxiety, Depression, PTSD Smoking Status: Heavy tobacco smoker Past Alcohol Use History: None Reported Past Drug Use History: Cocaine - Past Family History Mother Family Medical History: No Reported History General Exam Limitations: no limitations Course Vital Signs 09/25/18 09/25/18 09/25/18 12:28 12:42 12:53 Temperature 97.1 F L Pulse Rate 83 79 77 Respiratory 16 18 18 Rate Blood Pressure 68/45 91/58 95/67 O2 Sat by Pulse 93 L 93 L 97 Oximetry 09/25/18 09/25/18 09/25/18 13:01 13:36 14:31 Temperature Pulse Rate 78 75 83 Respiratory 18 18 18 Rate Blood Pressure 104/65 109/71 114/81 O2 Sat by Pulse 96 98 99 Oximetry Medical Decision Making - Lab Data Result diagrams: 09/25/18 12:55 09/25/18 12:55 Lab Results 09/25/18 09/25/18 09/25/18 Range/Units 12:44 12:50 12:54 WBC (3.8-10.6) k/uL RBC (3.80-5.40) m/uL Hgb (11.4-16.0) gm/dL Hct (34.0-46.0) % MCV (80.0-100.0) fL MCH (25.0-35.0) pg MCHC (31.0-37.0) g/dL RDW (11.5-15.5) % Plt Count (150-450) k/uL Neutrophils % % Lymphocytes % % Monocytes % % Eosinophils % % Basophils % % Neutrophils # (1.3-7.7) k/uL Lymphocytes # (1.0-4.8) k/uL Monocytes # (0-1.0) k/uL Eosinophils # (0-0.7) k/uL Basophils # (0-0.2) k/uL PT (9.0-12.0) sec INR (<1.2) Sodium (137-145) mmol/L Potassium (3.5-5.1) mmol/L Chloride (98-107) mmol/L Carbon Dioxide (22-30) mmol/L Anion Gap mmol/L BUN (7-17) mg/dL Creatinine (0.52-1.04) mg/dL Est GFR (CKD-EPI)AfAm (>60 ml/min/1.73 sqM) Est GFR (CKD-EPI)NonAf (>60 ml/min/1.73 sqM) Glucose (74-99) mg/dL POC Glucose (mg/dL) 111 H (75-99) mg/dL POC Glu [employer] In[employer] ID Olegario Walsh Plasma Lactic Acid Clifford (0.7-2.0) mmol/L Calcium (8.4-10.2) mg/dL Magnesium (1.6-2.3) mg/dL Total Bilirubin (0.2-1.3) mg/dL Conjugated Bilirubin (0.0-0.3) mg/dL Unconjugated Bilirubin (0.0-1.1) mg/dL Delta Bilirubin (0.0-0.2) mg/dL AST (14-36) U/L ALT (9-52) U/L Alkaline Phosphatase (38-126) U/L Troponin I (0.000-0.034) ng/mL Total Protein (6.3-8.2) g/dL Albumin (3.5-5.0) g/dL Lipase (23-300) U/L Stool Occult Blood Negative (Negative) Serum Alcohol mg/dL Blood Type Blood Type Confirm A Positive Blood Type Recheck Antibody Screen Spec Expiration Date 09/25/18 09/25/18 09/25/18 Range/Units 12:55 12:55 12:55 WBC 7.3 (3.8-10.6) k/uL RBC 4.03 (3.80-5.40) m/uL Hgb 11.1 L (11.4-16.0) gm/dL Hct 34.6 (34.0-46.0) % MCV 85.7 (80.0-100.0) fL MCH 27.6 (25.0-35.0) pg MCHC 32.3 (31.0-37.0) g/dL RDW 15.0 (11.5-15.5) % Plt Count 207 (150-450) k/uL Neutrophils % 79 % Lymphocytes % 12 % Monocytes % 7 % Eosinophils % 1 % Basophils % 0 % Neutrophils # 5.8 (1.3-7.7) k/uL Lymphocytes # 0.8 L (1.0-4.8) k/uL Monocytes # 0.5 (0-1.0) k/uL Eosinophils # 0.1 (0-0.7) k/uL Basophils # 0.0 (0-0.2) k/uL PT (9.0-12.0) sec INR (<1.2) Sodium 140 (137-145) mmol/L Potassium 2.9 L (3.5-5.1) mmol/L Chloride 110 H (98-107) mmol/L Carbon Dioxide 20 L (22-30) mmol/L Anion Gap 10 mmol/L BUN 30 H (7-17) mg/dL Creatinine 2.31 H (0.52-1.04) mg/dL Est GFR (CKD-EPI)AfAm 27 (>60 ml/min/1.73 sqM) Est GFR (CKD-EPI)NonAf 23 (>60 ml/min/1.73 sqM) Glucose 100 H (74-99) mg/dL POC Glucose (mg/dL) (75-99) mg/dL POC Glu Landscape H[employer] Instructor ID Plasma Lactic Acid Clifford (0.7-2.0) mmol/L Calcium 8.0 L (8.4-10.2) mg/dL Magnesium 1.6 (1.6-2.3) mg/dL Total Bilirubin 0.3 (0.2-1.3) mg/dL Conjugated Bilirubin 0.0 (0.0-0.3) mg/dL Unconjugated Bilirubin 0.2 (0.0-1.1) mg/dL Delta Bilirubin 0.1 (0.0-0.2) mg/dL AST 132 H (14-36) U/L ALT 64 H (9-52) U/L Alkaline Phosphatase 73 (38-126) U/L Troponin I (0.000-0.034) ng/mL Total Protein 5.6 L (6.3-8.2) g/dL Albumin 3.2 L (3.5-5.0) g/dL Lipase 42 (23-300) U/L Stool Occult Blood (Negative) Serum Alcohol <10 mg/dL Blood Type A Positive Blood Type Confirm Blood Type Recheck CABO Indicated Antibody Screen NEGATIVE Spec Expiration Date 09/28/2018235409/25/18 09/25/18 09/25/18 Range/Units 12:55 12:55 12:55 WBC (3.8-10.6) k/uL RBC (3.80-5.40) m/uL Hgb (11.4-16.0) gm/dL Hct (34.0-46.0) % MCV (80.0-100.0) fL MCH (25.0-35.0) pg MCHC (31.0-37.0) g/dL RDW (11.5-15.5) % Plt Count (150-450) k/uL Neutrophils % % Lymphocytes % % Monocytes % % Eosinophils % % Basophils % % Neutrophils # (1.3-7.7) k/uL Lymphocytes # (1.0-4.8) k/uL Monocytes # (0-1.0) k/uL Eosinophils # (0-0.7) k/uL Basophils # (0-0.2) k/uL PT 9.9 (9.0-12.0) sec INR 0.9 (<1.2) Sodium (137-145) mmol/L Potassium (3.5-5.1) mmol/L Chloride (98-107) mmol/L Carbon Dioxide (22-30) mmol/L Anion Gap mmol/L BUN (7-17) mg/dL Creatinine (0.52-1.04) mg/dL Est GFR (CKD-EPI)AfAm (>60 ml/min/1.73 sqM) Est GFR (CKD-EPI)NonAf (>60 ml/min/1.73 sqM) Glucose (74-99) mg/dL POC Glucose (mg/dL) (75-99) mg/dL POC Glu [employer] Instructor ID Plasma Lactic Acid Clifford 0.9 (0.7-2.0) mmol/L Calcium (8.4-10.2) mg/dL Magnesium (1.6-2.3) mg/dL Total Bilirubin (0.2-1.3) mg/dL Conjugated Bilirubin (0.0-0.3) mg/dL Unconjugated Bilirubin (0.0-1.1) mg/dL Delta Bilirubin (0.0-0.2) mg/dL AST (14-36) U/L ALT (9-52) U/L Alkaline Phosphatase (38-126) U/L Troponin I <0.012 (0.000-0.034) ng/mL Total Protein (6.3-8.2) g/dL Albumin (3.5-5.0) g/dL Lipase (23-300) U/L Stool Occult Blood (Negative) Serum Alcohol mg/dL Blood Type Blood Type Confirm Blood Type Recheck Antibody Screen Spec Expiration Date Disposition Clinical Impression: Dehydration, Hypotension, CAROLYN (acute kidney injury) Disposition: OTHER INSTITUTION NOT DEFINED Condition: Fair Referrals: [facility] [Primary Care Provider] - 1-2 days Time of Disposition: 14:34 - Out of Hospital Transfer - Req. Specs Out of Hospital Transfer - Requested Specifics: Other Emergency Center ([facility])
[2018-09-25 12:52] VITALS: RESP 18
[2018-09-25 13:06] LABS: Basophils % (A) 0 %; Eosinophils # (A) 0.1 k/uL (0-0.7); Eosinophils % (A) 1 %; HCT 34.6 % (34.0-46.0); HGB 11.1 gm/dL (11.4-16.0); Lymphocytes # (A) 0.8 k/uL (1.0-4.8); Lymphocytes % (A) 12 %; MCH 27.6 pg (25.0-35.0); MCHC 32.3 g/dL (31.0-37.0); MCV 85.7 fL (80.0-100.0); Mean Platelet Volume 7.4; Monocytes # (A) 0.5 k/uL (0-1.0); Monocytes % (A) 7 %; Neutrophils # (A) 5.8 k/uL (1.3-7.7); Neutrophils % (A) 79 %; Platelet Count 207 k/uL (150-450); RBC 4.03 m/uL (3.80-5.40); WBC 7.3 k/uL (3.8-10.6)
[2018-09-25 13:08] LABS: Glucose,Whole Blood 111 mg/dL (75-99)
[2018-09-25 13:15] LABS: ALT 64 U/L (9-52); AST 132 U/L (14-36); Albumin 3.2 g/dL (3.5-5.0); Alcohol <10 mg/dL; Alkaline Phosphatase 73 U/L (38-126); Anion Gap 10 mmol/L; Bilirubin, Delta 0.1 mg/dL (0.0-0.2); Bilirubin,Unconjugated 0.2 mg/dL (0.0-1.1); Blood Urea Nitrogen 30 mg/dL (7-17); Carbon Dioxide 20 mmol/L (22-30); Chloride 110 mmol/L (98-107); Glucose 100 mg/dL (74-99); Lipase 42 U/L (23-300); Magnesium 1.6 mg/dL (1.6-2.3); Potassium 2.9 mmol/L (3.5-5.1); Sodium 140 mmol/L (137-145); Total Bilirubin 0.3 mg/dL (0.2-1.3); Total Protein 5.6 g/dL (6.3-8.2)
[2018-09-25 13:19] LABS: INR 0.9 (<1.2); Prothrombin Time 9.9 sec (9.0-12.0)
--- NOTE | 2018-09-25 13:34 | XR ---
EXAMINATION TYPE: XR abdomen acute w cxr DATE OF EXAM: 09/25/2018 COMPARISON: 08/30/2015 HISTORY: Abdominal pain TECHNIQUE: Chest x-ray with supine and upright abdomen FINDINGS: There is no heart failure nor confluent pneumonic infiltrate. Costophrenic angles are clear. There ar e chest leads. Bowel gas pattern is normal. There is no sign of intestinal obstruction or pneumoperitoneum. Fecal pa ttern is normal. There are no pathologic calcifications over the kidneys. IMPRESSION: Nonacute abdomen. No active cardiopulmonary disease.
[2018-09-25] MEDS ORDERED: POTASSIUM CHLORIDE 20 MEQ in WATER FOR INJECTION 1 100ML.BAG IVPB STA (13:56)
[2018-09-25 14:54] LABS: Appearance,Urine Cloudy (Clear); Bilirubin,Urine Negative (Negative); Blood,Urine Small (Negative); Color,Urine Yellow; Glucose,Urine (UA) Negative (Negative); Ketones,Urine Negative (Negative); Leukocyte Esterase,Urine Negative (Negative); Mucus,Urine Occasional /hpf; Nitrite,Urine Negative (Negative); PH, Urine 5.5 (5.0-8.0); Protein,Urine 1+ (Negative); RBC,Urine 3 /hpf (0-5); Specific Gravity,Urine 1.011 (1.001-1.035); Squamous Epithelial Cell,Urine 2 /hpf (0-4); Urobilinogen,Urine <2.0 mg/dL (<2.0); WBC,Urine 21 /hpf (0-5)
[2018-09-25 15:31] VITALS: BP 109/76; PULSE 75
== END 2018-09-25 15:40 | disposition other institution (70) ==
LOC: EC 12:26
DX: N17.9 Acute kidney failure, unspecified (principal); E86.0 Dehydration; I95.9 Hypotension, unspecified; E87.2 Acidosis; G40.909 Epilepsy, unspecified, not intractable, without status epilepticus; F32.9 Major depressive disorder, single episode, unspecified; F41.9 Anxiety disorder, unspecified; F43.10 Post-traumatic stress disorder, unspecified; F17.200 Nicotine dependence, unspecified, uncomplicated; Z79.899 Other long term (current) drug therapy; Z88.1 Allergy status to other antibiotic agents
CPT/HCPCS: 36415; 93005; 86900; 86901; 80053; 82248; 82550; 83605; 83690; 83735; 84484; 85025; 85610; 86850; 82272; 81001; 87086; 74022; 99285; 96365; 96360; 96361; G0480; J3480; 80320

== ENCOUNTER 2018-11-18 06:10 | Emergency (ER) | payer MEDICARE, OTHER ==
[2018-11-18 06:16] VITALS: BP 151/85; PULSE 91; RESP 18; TEMP 98
[2018-11-18] MEDS ORDERED: predniSONE 50 MG TAB PO STA (07:13)
[2018-11-18] MEDS ORDERED: FAMOTIDINE 20 MG TAB PO STA (07:14)
--- NOTE | 2018-11-18 07:28 | ED ---
ENT HPI - General Chief complaint: ENT Stated complaint: ENT Time Seen by Provider: 11/18/18 07:00 Source: patient, RN notes reviewed Mode of arrival: ambulatory Limitations: physical limitation - History of Present Illness Initial comments: This is a 58-year-old female who presents with complaints of a swollen red tongue and feels like there is a hair additionally she states she's had clear drainage from her eyes for last several weeks since moving into an apartment [place]. She also is a smoker she has any shortness of breath or other symptoms at this time. No cough chest pain fevers chills or sweats. She does wear upper dental plate she denies any drainage from her mouth or teeth. No other complaints at this time MD complaint: other - Related Data Home Medications Medication Instructions Recorded Confirmed FLUoxetine HCL [PROzac] 60 mg PO DAILY 05/02/18 11/18/18 Gabapentin 600 mg PO TID 08/04/18 11/18/18 Lisinopril [Zestril] 10 mg PO DAILY 08/04/18 11/18/18 hydrOXYzine PAMOATE [Vistaril] 25 mg PO TID 08/04/18 11/18/18 Cyanocobalamin (Vitamin B-12) 1,000 mcg PO DAILY 09/25/18 11/18/18 [Vitamin B-12] Gully-3 Fatty Acids/Fish Oil [Fish 1 cap PO DAILY 09/25/18 11/18/18 Oil 1,000 mg Softgel] Pantoprazole Sodium [Protonix] 1 tab PO DAILY 11/18/18 11/18/18 Previous Rx's Medication Instructions Recorded Famotidine [Pepcid] 20 mg PO BID #14 tablet 11/18/18 methylPREDNISolone Dose Pack 4 mg PO DIRECTED #21 package 11/18/18 [Medrol Dose Pack] Allergies Allergy/AdvReac Type Severity Reaction Status Date / Time cephalexin monohydrate Allergy Rash/Hives Verified 11/18/18 06:17 [From Keflex] doxycycline Allergy Rash/Hives Verified 11/18/18 06:17 Review of Systems ROS Statement: Those systems with pertinent positive or pertinent negative responses have been documented in the HPI. ROS Other: All systems not noted in ROS Statement are negative. Past Medical History Past Medical History: Seizure Disorder Additional Past Medical History / Comment(s): kidney stones, chronic back pain. PAST HX OF 2 SEIZURES-LAST ONE WAS OVER A YEAR AGO-STATES WAS PROBABLY DRUG INDUCED R/T CRACK History of Any Multi-Drug Resistant Organisms: None Reported Past Surgical History: Cholecystectomy, Orthopedic Surgery Additional Past Surgical History / Comment(s): chico forearms-PLATES AND SCREWS Past Anesthesia/Blood Transfusion Reactions: No Reported Reaction Past Psychological History: Anxiety, Depression, PTSD Smoking Status: Heavy tobacco smoker Past Alcohol Use History: None Reported Past Drug Use History: Cocaine - Past Family History Mother Family Medical History: No Reported History General Exam - General Exam Comments Initial Comments: This is a well-developed sec appearing female who is awake alert oriented 3. She is noted to be trying to clean her tongue with a Q-tip vigorously swallowing or tongue. She's been doing this throughout the night she states. Limitations: physical limitation General appearance: alert, anxious Head exam: Present: atraumatic, normocephalic, normal inspection Eye exam: Present: PERRL, EOMI, other (Minimal evidence of clear tearing no exudates no foreign body seen). Absent: scleral icterus, conjunctival injection, periorbital swelling, periorbital tenderness Pupils: Present: normal accommodation ENT exam: Present: mucous membranes moist, other (Saturation time reveals some mild erythema no edema. No open wounds no evidence of angioedema or glossitis) Neck exam: Present: normal inspection, full ROM. Absent: tenderness, meningismus, lymphadenopathy Respiratory exam: Present: other (Occasional scattered wheezes with good aeration) Cardiovascular Exam: Present: regular rate, normal rhythm, normal heart sounds. Absent: systolic murmur, diastolic murmur, rubs, gallop, clicks Extremities exam: Present: normal inspection, full ROM, normal capillary refill. Absent: tenderness, pedal edema, joint swelling, calf tenderness Back exam: Present: normal inspection Neurological exam: Present: alert, oriented X3, CN II-XII intact Psychiatric exam: Present: anxious Skin exam: Present: warm, dry, intact, normal color. Absent: rash Course Vital Signs 11/18/18 06:12 Temperature 98 F Pulse Rate 91 Respiratory 18 Rate Blood Pressure 151/85 O2 Sat by Pulse 96 Oximetry - Reevaluation(s) Reevaluation #1: 11/18/18 07:28 Patient did leave AGAINST MEDICAL ADVICE prior to medication being given. She did not receive her medication in the department or her prescriptions. Procedures - Smoking Cessation Time Spent Discussing Smoking Cessation w/Patient (Minutes): 3 Patient Acknowledges Need for Cessation: No (Patient does not seem interested in stopping) Medical Decision Making - Medical Decision Making No further workup is indicated at this time the patient has evidence of ALLERGIES to cats no evidence of conjunctivitis no evidence of age-related he will request sinus. We did discuss smoking cessation we did discuss good oral hygiene including using mouthwashes. Patient will be placed on medication for her ALLERGIES. She did state she took some Benadryl with some relief. Additionally the patient will be referred back to her doctor. I suggest [id number] eyedrops for ALLERGIES Disposition Clinical Impression: Cat allergies, Smoking Disposition: Left Against Medical Advice Condition: Good Instructions (If sedation given, give patient instructions): Allergies (ED), How to Stop Smoking (ED) Prescriptions: methylPREDNISolone Dose Pack [Medrol Dose Pack] 4 mg PO DIRECTED #21 package Famotidine [Pepcid] 20 mg PO BID #14 tablet Is patient prescribed a controlled substance at d/c from ED?: No Referrals: [facility] [Primary Care Provider] - 1-2 days
== END 2018-11-18 07:25 | disposition home or self-care (01) ==
LOC: EC 06:10
DX: R06.2 Wheezing (principal); J30.81 Allergic rhinitis due to animal (cat) (dog) hair and dander; G40.909 Epilepsy, unspecified, not intractable, without status epilepticus; F32.9 Major depressive disorder, single episode, unspecified; F41.9 Anxiety disorder, unspecified; F43.10 Post-traumatic stress disorder, unspecified; F17.200 Nicotine dependence, unspecified, uncomplicated; Z71.6 Tobacco abuse counseling; Z53.29 Procedure and treatment not carried out because of patient's decision for other reasons; Z79.899 Other long term (current) drug therapy; Z88.1 Allergy status to other antibiotic agents
CPT/HCPCS: 99283; 99406

== ENCOUNTER 2019-03-29 12:34 | Emergency (ER) | payer MEDICARE, OTHER ==
[2019-03-29 13:24] VITALS: TEMP 97.8
[2019-03-29 13:42] VITALS: RESP 16
[2019-03-29] MEDS ORDERED: SODIUM CHLORIDE 0.9% 1,000 ML IV STA (13:50)
[2019-03-29] MEDS ORDERED: IPRATROPIUM-ALBUTEROL 3 ML NEB INHALATION STA (13:50)
[2019-03-29] MEDS ORDERED: methylPREDNISolone SOD SUCCI 125 MG/2 ML VIAL IV STA (13:50)
[2019-03-29 14:17] VITALS: PULSE 76
[2019-03-29 14:20] LABS: Anisocytosis Slight; Basophils # (A) 0.1 k/uL (0-0.2); Basophils % (A) 1 %; Eosinophils # (A) 0.1 k/uL (0-0.7); Eosinophils % (A) 1 %; HCT 37.7 % (34.0-46.0); HGB 12.6 gm/dL (11.4-16.0); Lymphocytes # (A) 0.8 k/uL (1.0-4.8); Lymphocytes % (A) 14 %; MCH 28.6 pg (25.0-35.0); MCHC 33.3 g/dL (31.0-37.0); Mean Platelet Volume 6.3; Monocytes # (A) 0.3 k/uL (0-1.0); Monocytes % (A) 6 %; Neutrophils # (A) 4.1 k/uL (1.3-7.7); Neutrophils % (A) 76 %; Platelet Count 247 k/uL (150-450); RBC 4.38 m/uL (3.80-5.40); RDW 16.1 % (11.5-15.5); WBC 5.4 k/uL (3.8-10.6)
[2019-03-29 14:32] LABS: Albumin 4.1 g/dL (3.5-5.0); Calcium 9.4 mg/dL (8.4-10.2); Potassium 4.1 mmol/L (3.5-5.1); Total Bilirubin 0.4 mg/dL (0.2-1.3); Total Protein 7.1 g/dL (6.3-8.2)
--- NOTE | 2019-03-29 14:57 | XR ---
EXAMINATION TYPE: XR chest 2V DATE OF EXAM: 03/29/2019 COMPARISON: 05/02/2018 INDICATION: Difficulty breathing TECHNIQUE: Frontal and lateral views of the chest are obtained. FINDINGS: The heart size is normal. The pulmonary vasculature is normal. The lungs are clear. IMPRESSION: 1. No acute pulmonary process.
--- NOTE | 2019-03-29 15:06 | ED ---
URI HPI - General Chief Complaint: Upper Respiratory Infection Stated Complaint: URI Time Seen by Provider: 03/29/19 13:38 Source: patient, RN notes reviewed, old records reviewed Mode of arrival: ambulatory Limitations: no limitations - History of Present Illness Initial Comments: Patient is a 58 year old female, presents today for CC of cough, congestion, shortness of breath for the past week. Patient states that she lives in a alf at this time. Patient reports that she has no fever, chills. She is a smoker. She reports that she has been quite anxious and upset with her current living situation. Patient reports she has no chest pain. - Related Data Home Medications Medication Instructions Recorded Confirmed FLUoxetine HCL [PROzac] 60 mg PO DAILY 05/02/18 03/29/19 Gabapentin 600 mg PO TID 08/04/18 03/29/19 Albuterol Sulfate [Ventolin HFA] 2 puff INHALATION Q6H PRN 03/29/19 03/29/19 Prednisolone Acetate/Pf 1 drop BOTH EYES DAILY 03/29/19 03/29/19 [Prednisolone Acet 1% Eye Drop] traZODone HCL 300 mg PO HS 03/29/19 03/29/19 Previous Rx's Medication Instructions Recorded Albuterol Inhaler [Ventolin Hfa 1 - 2 puff INHALATION RT-Q6H PRN 03/29/19 Inhaler] #1 inhaler Azithromycin [Zithromax Z-pack] 250 mg PO DIRECTED #6 tab 03/29/19 guaiFENesin-DM 600/30MG [Mucinex 1 each PO Q12HR #20 tab.er.12h 03/29/19 Dm] predniSONE 10 mg PO DAILY #15 tab 03/29/19 Allergies Allergy/AdvReac Type Severity Reaction Status Date / Time cephalexin monohydrate Allergy Rash/Hives Verified 03/29/19 15:06 [From Keflex] doxycycline Allergy Rash/Hives Verified 03/29/19 15:06 Review of Systems ROS Statement: Those systems with pertinent positive or pertinent negative responses have been documented in the HPI. ROS Other: All systems not noted in ROS Statement are negative. Past Medical History Past Medical History: Osteoarthritis (OA), Rheumatoid Arthritis (RA), Seizure Disorder Additional Past Medical History / Comment(s): kidney stones, chronic back pain. PAST HX OF 2 SEIZURES-LAST ONE WAS OVER A YEAR AGO-STATES WAS PROBABLY DRUG INDUCED R/T CRACK History of Any Multi-Drug Resistant Organisms: None Reported Past Surgical History: Cholecystectomy, Orthopedic Surgery Additional Past Surgical History / Comment(s): chico forearms-PLATES AND SCREWS Past Anesthesia/Blood Transfusion Reactions: No Reported Reaction Past Psychological History: Anxiety, Depression, PTSD Smoking Status: Heavy tobacco smoker Past Alcohol Use History: None Reported Past Drug Use History: Cocaine - Past Family History Mother Family Medical History: No Reported History General Exam - General Exam Comments Initial Comments: 58 year old female, no distress. Limitations: no limitations General appearance: alert, in no apparent distress Head exam: Present: atraumatic, normocephalic, normal inspection Eye exam: Present: normal appearance, PERRL, EOMI. Absent: scleral icterus, conjunctival injection, periorbital swelling ENT exam: Present: normal exam Neck exam: Present: normal inspection. Absent: tenderness, meningismus, lymphadenopathy Respiratory exam: Present: wheezes, rhonchi. Absent: normal lung sounds bilaterally, respiratory distress, rales, stridor GI/Abdominal exam: Present: soft, normal bowel sounds. Absent: distended, tenderness, guarding, rebound, rigid Back exam: Present: normal inspection Neurological exam: Present: alert, oriented X3, CN II-XII intact Psychiatric exam: Present: normal affect, normal mood Skin exam: Present: warm, dry, intact, normal color. Absent: rash Course Vital Signs 03/29/19 03/29/19 03/29/19 13:22 13:37 14:11 Temperature 97.8 F Pulse Rate 79 76 Respiratory 20 16 Rate Blood Pressure 121/58 O2 Sat by Pulse 95 Oximetry 03/29/19 03/29/19 14:27 15:34 Temperature Pulse Rate 76 76 Respiratory 16 Rate Blood Pressure 116/78 O2 Sat by Pulse 99 Oximetry Medical Decision Making - Medical Decision Making 58 year old female presents with wheezing, cougha nd congestion. Hx of smoking. Patient was given breathing treatment, IV steroids, and labs obtained. Labs were reviewed adn unremarkable. Patient has normal CXR. Patient feels better at thist ekaterina. Patient advised that patient likely has COPD exacerbation and bronchitis. She also complains of anxiety, given 1 PO ativan in ED. Patient will be discharged with albuterol, prednisone, and azithormycin. Discussed PCP follow up . She is scheduled for appt with Dr. Garland in 2 weeks. - Lab Data Result diagrams: 03/29/19 14:12 03/29/19 14:12 Lab Results 03/29/19 03/29/19 Range/Units 14:12 14:12 WBC 5.4 (3.8-10.6) k/uL RBC 4.38 (3.80-5.40) m/uL Hgb 12.6 (11.4-16.0) gm/dL Hct 37.7 (34.0-46.0) % MCV 86.0 (80.0-100.0) fL MCH 28.6 (25.0-35.0) pg MCHC 33.3 (31.0-37.0) g/dL RDW 16.1 H (11.5-15.5) % Plt Count 247 (150-450) k/uL Neutrophils % 76 % Lymphocytes % 14 % Monocytes % 6 % Eosinophils % 1 % Basophils % 1 % Neutrophils # 4.1 (1.3-7.7) k/uL Lymphocytes # 0.8 L (1.0-4.8) k/uL Monocytes # 0.3 (0-1.0) k/uL Eosinophils # 0.1 (0-0.7) k/uL Basophils # 0.1 (0-0.2) k/uL Anisocytosis Slight Sodium 141 (137-145) mmol/L Potassium 4.1 (3.5-5.1) mmol/L Chloride 106 (98-107) mmol/L Carbon Dioxide 25 (22-30) mmol/L Anion Gap 10 mmol/L BUN 24 H (7-17) mg/dL Creatinine 0.90 (0.52-1.04) mg/dL Est GFR (CKD-EPI)AfAm 83 (>60 ml/min/1.73 sqM) Est GFR (CKD-EPI)NonAf 72 (>60 ml/min/1.73 sqM) Glucose 83 (74-99) mg/dL Calcium 9.4 (8.4-10.2) mg/dL Magnesium 2.0 (1.6-2.3) mg/dL Total Bilirubin 0.4 (0.2-1.3) mg/dL AST 16 (14-36) U/L ALT 18 (9-52) U/L Alkaline Phosphatase 90 (38-126) U/L Total Protein 7.1 (6.3-8.2) g/dL Albumin 4.1 (3.5-5.0) g/dL - Radiology Data Radiology results: report reviewed CXR is negative for acute processs. Read by Dr. Kelsey. Disposition Clinical Impression: Bronchitis Disposition: HOME SELF-CARE Condition: Good Instructions (If sedation given, give patient instructions): Upper Respiratory Infection (ED) Additional Instructions: Patient advised to take medications as prescribed. Follow-up with your primary care physician. Prescriptions: guaiFENesin-DM 600/30MG [Mucinex Dm] 1 each PO Q12HR #20 tab.er.12h predniSONE 10 mg PO DAILY #15 tab Albuterol Inhaler [Ventolin Hfa Inhaler] 1 - 2 puff INHALATION RT-Q6H PRN #1 inhaler PRN Reason: Shortness Of Breath Azithromycin [Zithromax Z-pack] 250 mg PO DIRECTED #6 tab Is patient prescribed a controlled substance at d/c from ED?: No Referrals: [facility] [Primary Care Provider] - 1-2 days Time of Disposition: 15:20
[2019-03-29] MEDS ORDERED: LORazepam 1 MG TAB PO STA (15:19)
[2019-03-29 15:36] VITALS: BP 116/78
== END 2019-03-29 15:33 | disposition home or self-care (01) ==
LOC: EC 12:34
DX: J40 Bronchitis, not specified as acute or chronic (principal); F41.9 Anxiety disorder, unspecified; G40.909 Epilepsy, unspecified, not intractable, without status epilepticus; M19.90 Unspecified osteoarthritis, unspecified site; F32.9 Major depressive disorder, single episode, unspecified; F17.200 Nicotine dependence, unspecified, uncomplicated; Z88.1 Allergy status to other antibiotic agents; Z79.52 Long term (current) use of systemic steroids; Z79.899 Other long term (current) drug therapy; Z96.698 Presence of other orthopedic joint implants
CPT/HCPCS: 36415; 94640; 80053; 83735; 85025; 71046; 99285; 96374; 96361; J2930

== ENCOUNTER → 2019-06-27 | Outpatient (CLI) | payer MEDICARE, OTHER ==
--- NOTE | 2019-06-27 18:56 | US ---
EXAMINATION TYPE: US kidneys/renal and bladder DATE OF EXAM: 06/27/2019 COMPARISON: NONE CLINICAL HISTORY: N20.0 Kidney Stones. EXAM MEASUREMENTS: Right Kidney: 10.0 x 3.8 x 4.7 cm Left Kidney: 10.2 x 4.6 x 5.1 cm Right Kidney: No hydronephrosis or nephrolithiasis seen, inferior pole slightly obscured by bowel gas Left Kidney: No hydronephrosis or nephrolithiasis seen, inferior pole slightly obscured by bowel gas Bladder: wnl Bilateral Jets seen: Yes IMPRESSION: Mildly Limited exam demonstrates no hydronephrosis or nephrolithiasis
== END | disposition home or self-care (01) ==
LOC: RADUSWWP 15:21
PROVIDERS: ATTEND Family Medicine
DX: N20.0 Calculus of kidney (principal)
CPT/HCPCS: 76770

== ENCOUNTER 2019-07-13 11:29 | Emergency (ER) | payer MEDICARE, OTHER ==
[2019-07-13 11:39] VITALS: TEMP 97.7
[2019-07-13] MEDS ORDERED: LORazepam 2 MG/ML INJ IM STA (11:49)
--- NOTE | 2019-07-13 11:56 | ED ---
General Adult HPI - General Chief complaint: Overdose Stated complaint: mental distress Time Seen by Provider: 07/13/19 11:35 Source: patient, RN notes reviewed, old records reviewed Mode of arrival: ambulatory Limitations: no limitations - History of Present Illness Initial comments: This is a 58-year-old female who states she smokes methamphetamine this morning and after that she thought glue was coming out of her eyes and states now that her eyes are burning and she is afraid her eyes to be glued together. Patient states she did not put anything in her eye symptoms after she smoked that she doesn't know what was in that she thinks something that was and it made her eyes burned and she is worried that they will become glued together. Patient denies any other problems or symptoms today. Patient denies any suicidal homicidal ideations. Patient states she was not trying to hurt herself she just was doing methamphetamines. - Related Data Home Medications Medication Instructions Recorded Confirmed FLUoxetine HCL [PROzac] 60 mg PO DAILY 05/02/18 03/29/19 Gabapentin 600 mg PO TID 08/04/18 03/29/19 Albuterol Sulfate [Ventolin HFA] 2 puff INHALATION Q6H PRN 03/29/19 03/29/19 Prednisolone Acetate/Pf 1 drop BOTH EYES DAILY 03/29/19 03/29/19 [Prednisolone Acet 1% Eye Drop] traZODone HCL 300 mg PO HS 03/29/19 03/29/19 Previous Rx's Medication Instructions Recorded Albuterol Inhaler [Ventolin Hfa 1 - 2 puff INHALATION RT-Q6H PRN 03/29/19 Inhaler] #1 inhaler Azithromycin [Zithromax Z-pack] 250 mg PO DIRECTED #6 tab 03/29/19 guaiFENesin-DM 600/30MG [Mucinex 1 each PO Q12HR #20 tab.er.12h 03/29/19 Dm] predniSONE 10 mg PO DAILY #15 tab 03/29/19 Allergies Allergy/AdvReac Type Severity Reaction Status Date / Time cephalexin monohydrate Allergy Rash/Hives Verified 07/13/19 11:35 [From Keflex] doxycycline Allergy Rash/Hives Verified 07/13/19 11:35 Review of Systems ROS Statement: Those systems with pertinent positive or pertinent negative responses have been documented in the HPI. ROS Other: All systems not noted in ROS Statement are negative. Past Medical History Past Medical History: Osteoarthritis (OA), Rheumatoid Arthritis (RA), Seizure Disorder Additional Past Medical History / Comment(s): kidney stones, chronic back pain. PAST HX OF 2 SEIZURES-LAST ONE WAS OVER A YEAR AGO-STATES WAS PROBABLY DRUG INDUCED R/T CRACK History of Any Multi-Drug Resistant Organisms: None Reported Past Surgical History: Cholecystectomy, Orthopedic Surgery Additional Past Surgical History / Comment(s): chico forearms-PLATES AND SCREWS Past Anesthesia/Blood Transfusion Reactions: No Reported Reaction Past Psychological History: Anxiety, Depression, PTSD Smoking Status: Heavy tobacco smoker Past Alcohol Use History: None Reported Past Drug Use History: Cocaine, Methamphetamine - Past Family History Mother Family Medical History: No Reported History General Exam - General Exam Comments Initial Comments: GENERAL: Patient is well-developed and well-nourished. Patient is nontoxic and well- hydrated and is in mild distress. ENT: Neck is soft and supple. No significant lymphadenopathy is noted. Oropharynx is clear. Moist mucous membranes. Neck has full range of motion without eliciting any pain. EYES: The sclera were anicteric and conjunctiva were pink and moist. Extraocular movements were intact and pupils were equal round and reactive to light. Eyelids were unremarkable. PULMONARY: Unlabored respirations. Good breath sounds bilaterally. No audible rales rhonchi or wheezing was noted. CARDIOVASCULAR: There is a regular rate and rhythm without any murmurs gallops or rubs. ABDOMEN: Soft and nontender with normal bowel sounds. SKIN: Skin is clear with no lesions or rashes and otherwise unremarkable. NEUROLOGIC: Patient is alert and oriented x3. Cranial nerves II through XII are grossly intact. Motor and sensory are also intact. Normal speech, volume and content. Symmetrical smile. MUSCULOSKELETAL: Normal extremities with adequate strength and full range of motion. No lower extremity swelling or edema. No calf tenderness. LYMPHATICS: No significant lymphadenopathy is noted PSYCHIATRIC: Patient is very anxious and tearful and keeps crying because she thinks her Isordil to become glued together Limitations: no limitations Course Vital Signs 07/13/19 11:35 Temperature 97.7 F Pulse Rate 100 Respiratory 18 Rate Blood Pressure 190/88 O2 Sat by Pulse 100 Oximetry Medical Decision Making - Medical Decision Making Patient was given 2 mg of Ativan and her symptoms improved greatly. She still stated she had some itching on her face psychiatric or Benadryl. Patient admitted that probably she was hallucinating when she thought her eyes were going to be glued together she actually was laughing about it currently. Patient will follow-up as needed. Patient should not do any more methamphetamine. Disposition Clinical Impression: Methamphetamine abuse Disposition: HOME SELF-CARE Condition: Good Instructions (If sedation given, give patient instructions): Methamphetamine Abuse (ED) Additional Instructions: Stop doing methamphetamines Is patient prescribed a controlled substance at d/c from ED?: No Referrals: None,Stated [REFERRING] - 1-2 days Time of Disposition: 13:08
[2019-07-13] MEDS ORDERED: diphenhydrAMINE 50 MG/ML 1 ML VIAL IM STA (13:06)
[2019-07-13 13:32] VITALS: BP 164/95; PULSE 87; RESP 20
== END 2019-07-13 13:32 | disposition home or self-care (01) ==
LOC: EC 11:29
DX: F15.188 Other stimulant abuse with other stimulant-induced disorder (principal); L29.9 Pruritus, unspecified; F41.9 Anxiety disorder, unspecified; F43.10 Post-traumatic stress disorder, unspecified; F32.9 Major depressive disorder, single episode, unspecified; M06.9 Rheumatoid arthritis, unspecified; F17.210 Nicotine dependence, cigarettes, uncomplicated; G40.909 Epilepsy, unspecified, not intractable, without status epilepticus; G89.29 Other chronic pain; M54.9 Dorsalgia, unspecified; Z79.51 Long term (current) use of inhaled steroids; Z79.52 Long term (current) use of systemic steroids; Z79.899 Other long term (current) drug therapy; Z88.1 Allergy status to other antibiotic agents
CPT/HCPCS: 99285 ×2; 96372 ×2; 82075; 96360; J2060; J1200

== ENCOUNTER 2019-12-05 14:55 | Emergency (ER) | payer MEDICARE, OTHER ==
[2019-12-05] MEDS ORDERED: KETOROLAC 60 MG/2 ML VIAL IM STA (15:33)
--- NOTE | 2019-12-05 15:38 | ED ---
General Adult HPI - General Chief complaint: Chest Pain Stated complaint: chest & back pain last week Time Seen by Provider: 12/05/19 15:00 Source: patient, RN notes reviewed, old records reviewed Mode of arrival: ambulatory Limitations: no limitations - History of Present Illness Initial comments: This is a 59-year-old female who presents emergency Department complaining of chest pain for one week. Patient states the pain is very sharp in nature and when it started she moved her arm and she felt a crack in her chest ever since then there is one area is extremely tender. Patient states that she does not touch it there is no pain. Patient states if she moves the wrong way it does cause pain but if she just stays still and doesn't move her arms there is no pain. Patient states this is been ongoing for approximately one week Patient believes it to be muscle skeletal but when she called her doctor's office they told to come to the emergency department. Patient denies any radiation of the pain. Patient denies any shortness of breath or difficulty breathing. Patient has a fever chills or cough. Patient denies any diaphoresis. Patient denies any nausea vomiting patient denies any abdominal pain. - Related Data Home Medications Medication Instructions Recorded Confirmed Albuterol Sulfate [Ventolin HFA] 1 - 2 puff INHALATION RT-Q4H PRN 03/29/19 12/05/19 Atorvastatin [Lipitor] 20 mg PO DAILY 12/05/19 12/05/19 Cetirizine HCl 10 mg PO DAILY 12/05/19 12/05/19 DULoxetine HCL [Cymbalta] 60 mg PO DIRECTED 12/05/19 12/05/19 DULoxetine HCL [Cymbalta] See Taper PO DAILY 12/05/19 12/05/19 Gabapentin [Neurontin] 300 mg PO BID 12/05/19 12/05/19 Ibuprofen [Advil] 800 mg PO DAILY 12/05/19 12/05/19 Ketotifen 0.025% Ophth Soln 1 drop BOTH EYES BID 12/05/19 12/05/19 [Zaditor] Lisinopril [Zestril] 10 mg PO DAILY 12/05/19 12/05/19 traZODone HCL [Desyrel] 300 mg PO HS 12/05/19 12/05/19 Previous Rx's Medication Instructions Recorded Ibuprofen [Motrin] 600 mg PO Q6HR PRN #20 tab 12/05/19 Allergies Allergy/AdvReac Type Severity Reaction Status Date / Time cephalexin monohydrate Allergy Rash/Hives Verified 12/05/19 16:54 [From Keflex] doxycycline Allergy Rash/Hives Verified 12/05/19 16:54 Review of Systems ROS Statement: Those systems with pertinent positive or pertinent negative responses have been documented in the HPI. ROS Other: All systems not noted in ROS Statement are negative. Past Medical History Past Medical History: Hypertension, Osteoarthritis (OA), Rheumatoid Arthritis ( RA), Seizure Disorder Additional Past Medical History / Comment(s): kidney stones, chronic back pain. PAST HX OF 2 SEIZURES-LAST ONE WAS OVER A YEAR AGO-STATES WAS PROBABLY DRUG INDUCED R/T CRACK History of Any Multi-Drug Resistant Organisms: None Reported Past Surgical History: Cholecystectomy, Orthopedic Surgery Additional Past Surgical History / Comment(s): chico forearms-PLATES AND SCREWS Past Anesthesia/Blood Transfusion Reactions: No Reported Reaction Past Psychological History: Anxiety, Depression, PTSD Smoking Status: Heavy tobacco smoker Past Alcohol Use History: None Reported Past Drug Use History: Cocaine, Methamphetamine - Past Family History Mother Family Medical History: No Reported History General Exam - General Exam Comments Initial Comments: GENERAL: Patient is well-developed and well-nourished. Patient is nontoxic and well- hydrated and is in no acute distress. ENT: Neck is soft and supple. No significant lymphadenopathy is noted. Oropharynx is clear. Moist mucous membranes. Neck has full range of motion without e liciting any pain. There is no thyroid enlargement and no masses were felt. EYES: The sclera were anicteric and conjunctiva were pink and moist. Extraocular movements were intact and pupils were equal round and reactive to light. Eyelids were unremarkable. PULMONARY: Unlabored respirations. Good breath sounds bilaterally. No audible rales rhonchi or wheezing was noted. CARDIOVASCULAR: There is a regular rate and rhythm without any murmurs gallops or rubs. ABDOMEN: Soft and nontender with normal bowel sounds. No palpable organomegaly was noted. There is no palpable pulsatile mass. SKIN: Skin is clear with no lesions or rashes and otherwise unremarkable. NEUROLOGIC: Patient is alert and oriented x3. Cranial nerves II through XII are grossly intact. Motor and sensory are also intact. Normal speech, volume and content. Symmetrical smile. Cerebellar exam grossly intact. MUSCULOSKELETAL: Normal extremities with adequate strength and full range of motion. No lower extremity swelling or edema. No calf tenderness. LYMPHATICS: No significant lymphadenopathy is noted PSYCHIATRIC: Normal psychiatric evaluation. Limitations: no limitations Course Vital Signs 12/05/19 15:02 Temperature 98 F Pulse Rate 82 Respiratory 18 Rate Blood Pressure 137/81 O2 Sat by Pulse 98 Oximetry Medical Decision Making - Medical Decision Making EKG shows normal sinus rhythm at 70 bpm LA interval 280 QRS is 86 QT interval 406 QTC is 465. EKG shows no ST segment elevation or depression. I will back into the room to reevaluate the patient she stated that the Toradol almost completely took her pain away. If she still pressed on the exact area it would recur if she didn't touch it there was no pain. Disposition Clinical Impression: Chest wall pain Disposition: HOME SELF-CARE Condition: Good Prescriptions: Ibuprofen [Motrin] 600 mg PO Q6HR PRN #20 tab PRN Reason: For pain Is patient prescribed a controlled substance at d/c from ED?: No Referrals: [facility] [Primary Care Provider] - 1-2 days Time of Disposition: 17:30
--- NOTE | 2019-12-05 17:12 | XR ---
EXAMINATION TYPE: XR chest 2V DATE OF EXAM: 12/05/2019 COMPARISON: 03/29/2019 HISTORY: Difficulty breathing TECHNIQUE: 2 views FINDINGS: Heart and mediastinum are normal. Lungs are clear of infiltrate. There is no heart failure. There are no hilar masses. Bony thorax is intact. There is mild flattening of the diaphragm. IMPRESSION: There is probably some COPD. No active cardiopulmonary disease. No change.
[2019-12-05 18:43] VITALS: BP 117/74; PULSE 80; RESP 16; TEMP 98.2
== END 2019-12-05 18:43 | disposition home or self-care (01) ==
LOC: EC 14:55
DX: R07.89 Other chest pain (principal); I10 Essential (primary) hypertension; F41.9 Anxiety disorder, unspecified; F32.9 Major depressive disorder, single episode, unspecified; F17.200 Nicotine dependence, unspecified, uncomplicated; Z79.899 Other long term (current) drug therapy; Z88.1 Allergy status to other antibiotic agents
CPT/HCPCS: 93005; 71046; 99285; 96372; J1885

== ENCOUNTER 2020-01-07 06:26 | Emergency (ER) | payer MEDICARE, OTHER ==
[2020-01-07 06:34] VITALS: PULSE 70; TEMP 98
[2020-01-07] MEDS ORDERED: NICOTINE 14MG/24HR PATCH TRANSDERM STA (06:38)
--- NOTE | 2020-01-07 07:00 | ED ---
General Adult HPI - General Chief complaint: Recheck/Abnormal Lab/Rx Stated complaint: Medication Issues Time Seen by Provider: 01/07/20 06:27 Source: patient, RN notes reviewed, old records reviewed Mode of arrival: EMS Limitations: no limitations - History of Present Illness Initial comments: 59-year-old female patient presents to ED for chief complaint of racing thoughts wishes to have her medications adjusted. Patient reports that she is on Cymbalta. She denies any suicidal or homicidal thoughts. Denies any acute physical complaints. Systemic: Pt denies fatigue, fever/chills, rash. Pt denies weakness, night sweats, weight loss. Neuro: Pt denies headache, visual disturbances, syncope or pre-syncope. HEENT: Pt denies ocular discharge or irritation, otalgia, rhinorrhea, pharyngitis or notable lymphadenopathy. Cardiopulmonary: Pt denies chest pain, SOB, heart palpitations, dyspnea on exertion. Abdominal/GI: Pt denies abdominal pain, n/v/d. : Pt denies dysuria, burning w/ urination, frequency/urgency. Denies new onset urinary or bowel incontinence. MSK: Pt denies myalgia, loss of strength or function in extremities. Neuro: Pt denies new onset weakness, paresthesias. - Related Data Home Medications Medication Instructions Recorded Confirmed Albuterol Sulfate [Ventolin HFA] 1 - 2 puff INHALATION RT-QID PRN 03/29/19 01/07/20 Atorvastatin [Lipitor] 20 mg PO DAILY 12/05/19 01/07/20 Cetirizine HCl 10 mg PO DAILY 12/05/19 01/07/20 DULoxetine HCL [Cymbalta] 60 mg PO DAILY 12/05/19 01/07/20 Gabapentin [Neurontin] 300 mg PO BID 12/05/19 01/07/20 Ketotifen 0.025% Ophth Soln 1 drop BOTH EYES BID 12/05/19 01/07/20 [Zaditor] lisinopriL [Zestril] 10 mg PO DAILY 12/05/19 01/07/20 traZODone HCL [Desyrel] 300 mg PO HS 12/05/19 01/07/20 Ibuprofen [Motrin] 800 mg PO BID PRN 01/07/20 01/07/20 Allergies Allergy/AdvReac Type Severity Reaction Status Date / Time cephalexin monohydrate Allergy Rash/Hives Verified 01/07/20 08:53 [From Keflex] doxycycline Allergy Rash/Hives Verified 01/07/20 08:53 Review of Systems ROS Statement: Those systems with pertinent positive or pertinent negative responses have been documented in the HPI. ROS Other: All systems not noted in ROS Statement are negative. Past Medical History Past Medical History: Hypertension, Osteoarthritis (OA), Rheumatoid Arthritis (RA), Seizure Disorder Additional Past Medical History / Comment(s): kidney stones, chronic back pain. PAST HX OF 2 SEIZURES-LAST ONE WAS OVER A YEAR AGO-STATES WAS PROBABLY DRUG INDUCED R/T CRACK History of Any Multi-Drug Resistant Organisms: None Reported Past Surgical History: Cholecystectomy, Orthopedic Surgery Additional Past Surgical History / Comment(s): chico forearms-PLATES AND SCREWS Past Anesthesia/Blood Transfusion Reactions: No Reported Reaction Past Psychological History: Anxiety, Depression, PTSD Past Alcohol Use History: None Reported Past Drug Use History: Cocaine, Methamphetamine - Past Family History Mother Family Medical History: No Reported History General Exam - General Exam Comments Initial Comments: Constitutional: NAD, AOX3, Pt has pleasant affect. HEENT: NC/AT, trachea midline, neck supple, no lymphadenopathy.External ears appear normal, without discharge. Mucous membranes moist. Eyes PERRLA, EOM intact. There is no scleral icterus. No pallor noted. Cardiopulmonary: RRR, no murmurs, rubs or gallops, no JVD noted. Lungs CTAB in anterior and posterior rasheed. No peripheral edema. Abdominal exam: Abdomen soft and non-distended. Abdomen non-tender to palpation in all 4 quadrants. Bowel sounds active in LLQ. No hepatosplenomegaly. No ecchymosis Neuro: CN II-XII grossly intact. No nuchal rigidity. No raccon eyes MSK: Full active ROM in upper and lower extremities Limitations: no limitations Course Vital Signs 01/07/20 01/07/20 01/07/20 06:27 08:00 09:00 Temperature 98 F Pulse Rate 70 Respiratory 16 18 18 Rate Blood Pressure 109/75 O2 Sat by Pulse 96 Oximetry 01/07/20 01/07/20 01/07/20 10:00 11:00 12:40 Temperature 98 F Pulse Rate 70 Respiratory 18 18 18 Rate Blood Pressure 110/87 O2 Sat by Pulse 96 Oximetry Medical Decision Making - Medical Decision Making 59-year-old female patient with history for psychiatric evaluation denies any suicidal or homicidal ideations. Patient vital signs are stable. Physical exam didn't display acute pathology. Tox screen positive for multiple illegal drugs. Pt evaluated by EPS and cleared for discharge. Patient was discharged with outpatient follow-up with PCP and community mental health and will return to ER if condition worsens. Case discussed with Dr. Kelley. - Lab Data Lab Results 01/07/20 Range/Units 08:26 Urine Opiates Screen Not Detected (NotDetected) Ur Oxycodone Screen Not Detected (NotDetected) Urine Methadone Screen Not Detected (NotDetected) Ur Propoxyphene Screen Not Detected (NotDetected) Ur Barbiturates Screen Not Detected (NotDetected) U Tricyclic Antidepress Not Detected (NotDetected) Ur Phencyclidine Scrn Not Detected (NotDetected) Ur Amphetamines Screen Detected H (NotDetected) U Methamphetamines Scrn Detected H (NotDetected) U Benzodiazepines Scrn Not Detected (NotDetected) Urine Cocaine Screen Detected H (NotDetected) U Marijuana (THC) Screen Detected H (NotDetected) Disposition Clinical Impression: Psychiatric disorder, Polysubstance abuse Disposition: HOME SELF-CARE Condition: Stable Instructions (If sedation given, give patient instructions): Polysubstance Abuse (ED) Additional Instructions: follow-up with [facility] tomorrow. Return to ER if any worsening symptoms. Do not do any more illegal drugs. Is patient prescribed a controlled substance at d/c from ED?: No Referrals: [facility] [Primary Care Provider] - 1-2 days
[2020-01-07 08:27] VITALS: RESP 18
[2020-01-07 08:58] LABS: Cocaine Screen,Urine Detected (NotDetected); Opiate Screen,Urine Not Detected (NotDetected); Phencyclidine Screen,Urine Not Detected (NotDetected); Urn Cannabinoid Scrn Detected (NotDetected)
[2020-01-07 08:59] LABS: Amphetamine Screen,Urine Detected (NotDetected); Barbiturate Screen,Urine Not Detected (NotDetected); Benzodiazepines Screen,Urine Not Detected (NotDetected); Methadone Screen, Urine Not Detected (NotDetected); Oxycodone Screen, Urine Not Detected (NotDetected); Tricyclic Antidepressant,Urine Not Detected (NotDetected)
[2020-01-07 12:40] VITALS: BP 110/87
== END 2020-01-07 12:51 | disposition home or self-care (01) ==
LOC: EC 06:26
DX: F19.10 Other psychoactive substance abuse, uncomplicated (principal); F99 Mental disorder, not otherwise specified; I10 Essential (primary) hypertension; M19.90 Unspecified osteoarthritis, unspecified site; M06.9 Rheumatoid arthritis, unspecified; G40.909 Epilepsy, unspecified, not intractable, without status epilepticus; G89.29 Other chronic pain; M54.9 Dorsalgia, unspecified; F41.9 Anxiety disorder, unspecified; F32.9 Major depressive disorder, single episode, unspecified; F43.10 Post-traumatic stress disorder, unspecified; Z79.51 Long term (current) use of inhaled steroids; Z79.899 Other long term (current) drug therapy; Z88.1 Allergy status to other antibiotic agents
CPT/HCPCS: 80306; 99284; S4990

== ENCOUNTER 2020-01-22 21:11 | Emergency (ER) | payer MEDICARE, OTHER ==
[2020-01-22 21:19] VITALS: TEMP 98.7
[2020-01-22] MEDS ORDERED: SODIUM CHLORIDE 0.9% 1,000 ML IV ONE (21:56)
[2020-01-22] MEDS ORDERED: KETOROLAC 15 MG/ML 1 ML VIAL IVP STA (21:56)
[2020-01-22] MEDS ORDERED: NICOTINE 21MG/24HR PATCH TRANSDERM STA (22:01)
[2020-01-22 22:16] LABS: Basophils # (A) 0.1 k/uL (0-0.2); Basophils % (A) 1 %; Eosinophils # (A) 0.1 k/uL (0-0.7); Eosinophils % (A) 1 %; HCT 41.2 % (34.0-46.0); HGB 13.5 gm/dL (11.4-16.0); Lymphocytes # (A) 1.8 k/uL (1.0-4.8); Lymphocytes % (A) 20 %; MCHC 32.7 g/dL (31.0-37.0); MCV 88.6 fL (80.0-100.0); Mean Platelet Volume 8.8; Monocytes # (A) 0.6 k/uL (0-1.0); Monocytes % (A) 6 %; Neutrophils # (A) 6.4 k/uL (1.3-7.7); Neutrophils % (A) 70 %; Platelet Count 291 k/uL (150-450); RBC 4.65 m/uL (3.80-5.40); WBC 9.1 k/uL (3.8-10.6)
[2020-01-22 22:21] LABS: ALT 14 U/L (4-34); AST 26 U/L (14-36); African American GFR (CKD) >90 (>60 ml/min/1.73 sqM); Albumin 4.5 g/dL (3.5-5.0); Alkaline Phosphatase 70 U/L (38-126); Amylase 45 U/L (30-110); Anion Gap 7 mmol/L; Blood Urea Nitrogen 15 mg/dL (7-17); Calcium 9.6 mg/dL (8.4-10.2); Carbon Dioxide 26 mmol/L (22-30); Chloride 104 mmol/L (98-107); Glucose 107 mg/dL (74-99); Lipase 51 U/L (23-300); Non-African American GFR(CKD) 79 (>60 ml/min/1.73 sqM); Potassium 4.5 mmol/L (3.5-5.1); Sodium 137 mmol/L (137-145); Total Bilirubin 0.6 mg/dL (0.2-1.3); Total Protein 7.5 g/dL (6.3-8.2)
[2020-01-22 22:23] LABS: Bacteria,Urine Occasional /hpf; Mucus,Urine Rare /hpf; RBC,Urine >182 /hpf (0-5); WBC,Urine >182 /hpf (0-5)
[2020-01-22 22:29] LABS: Appearance,Urine Cloudy (Clear)
[2020-01-22 22:30] LABS: Bilirubin,Urine Negative (Negative); Blood,Urine Large (Negative); Color,Urine Yellow; Glucose,Urine (UA) Negative (Negative); Ketones,Urine Negative (Negative); Leukocyte Esterase,Urine Large (Negative); Nitrite,Urine Negative (Negative); Protein,Urine 2+ (Negative); Urobilinogen,Urine <2.0 mg/dL (<2.0)
--- NOTE | 2020-01-22 22:54 | ED ---
Abdominal Pain HPI - General Chief Complaint: Abdominal Pain Stated Complaint: Kidney Stone Time Seen by Provider: 01/22/20 21:20 Source: patient Mode of arrival: ambulatory Limitations: no limitations - History of Present Illness Initial Comments: 59-year-old female patient presents to the emergency department today for evaluation of left flank pain. Patient states that she's been having discomfort to the left lower abdomen for the last several days. States that the pain is now in the left flank. States that she is having urinary hesitancy today. Denies any hematuria. States she is quite constipated and has been able to have a good bowel movement for the last several days. She denies fever or chills. Denies nausea or vomiting. Patient states she has had kidney stones in the past and this feels similar. Denies hematochezia or melena. She has had lithotripsy for kidney stones in the past but no other abdominal surgeries. Patient denies any recent rash, cough, shortness of breath, chest pain, diarrhea, constipation, numbness, tingling, dizziness, weakness, headache, visual changes, or any other complaints. - Related Data Home Medications Medication Instructions Recorded Confirmed Albuterol Sulfate [Ventolin HFA] 2 puff INHALATION RT-QID PRN 03/29/19 01/22/20 Atorvastatin [Lipitor] 20 mg PO HS 12/05/19 01/22/20 Cetirizine HCl 10 mg PO DAILY 12/05/19 01/22/20 lisinopriL [Zestril] 10 mg PO DAILY 12/05/19 01/22/20 traZODone HCL [Desyrel] 300 mg PO HS 12/05/19 01/22/20 QUEtiapine [SEROquel] 100 mg PO DAILY 01/22/20 01/22/20 Previous Rx's Medication Instructions Recorded Sulfamethoxazole/Trimethoprim 1 each PO BID #20 tablet 01/22/20 [Bactrim DS 800-160 mg] Allergies Allergy/AdvReac Type Severity Reaction Status Date / Time cephalexin monohydrate Allergy Rash/Hives Verified 01/22/20 22:22 [From Keflex] doxycycline Allergy Rash/Hives Verified 01/22/20 22:22 Review of Systems ROS Statement: Those systems with pertinent positive or pertinent negative responses have been documented in the HPI. ROS Other: All systems not noted in ROS Statement are negative. Past Medical History Past Medical History: Hypertension, Osteoarthritis (OA), Rheumatoid Arthritis (RA), Seizure Disorder Additional Past Medical History / Comment(s): kidney stones, chronic back pain. PAST HX OF 2 SEIZURES History of Any Multi-Drug Resistant Organisms: None Reported Past Surgical History: Cholecystectomy, Orthopedic Surgery Additional Past Surgical History / Comment(s): chico forearms-PLATES AND SCREWS Past Anesthesia/Blood Transfusion Reactions: No Reported Reaction Past Psychological History: Anxiety, Depression, PTSD Past Alcohol Use History: None Reported Past Drug Use History: Cocaine, Methamphetamine - Past Family History Mother Family Medical History: No Reported History General Exam Limitations: no limitations General appearance: alert, in no apparent distress, other (This is a well- developed, well-nourished adult female patient in no acute distress. Vital signs upon presentation are temperature 98.7F, pulse 91, respirations 18, blood pressure 100/65, pulse ox 100% on room air.) Eye exam: Present: normal appearance, PERRL, EOMI. Absent: scleral icterus, conjunctival injection, periorbital swelling ENT exam: Present: normal exam, normal oropharynx, mucous membranes moist Respiratory exam: Present: normal lung sounds bilaterally. Absent: respiratory distress, wheezes, rales, rhonchi, stridor Cardiovascular Exam: Present: regular rate, normal rhythm, normal heart sounds. Absent: systolic murmur, diastolic murmur, rubs, gallop, clicks GI/Abdominal exam: Present: soft, tenderness (Left lower quadrant), normal bowel sounds. Absent: distended, guarding, rebound, rigid Back exam: Present: normal inspection. Absent: CVA tenderness (R), CVA tenderness (L) Neurological exam: Present: alert, oriented X3, CN II-XII intact Psychiatric exam: Present: normal affect, normal mood Skin exam: Present: warm, dry, intact, normal color. Absent: rash Course Vital Signs 01/22/20 01/22/20 21:12 23:34 Temperature 98.7 F Pulse Rate 91 83 Respiratory 18 16 Rate Blood Pressure 100/65 110/73 O2 Sat by Pulse 100 96 Oximetry Medical Decision Making - Medical Decision Making 59-year-old female patient presented to the emergency department today for evaluation of left flank pain and left lower quadrant abdominal pain. Physical examination did reveal left lower quadrant tenderness. Labs reviewed and did reveal evidence for urinary tract infection. CT abdomen and pelvis was obtained and showed diverticulosis without diverticulitis. No sign of hydronephrosis or hydroureter. Did show significant constipation. I did discuss findings and results with the patient. We'll start Bactrim for urinary tract infection, urine culture has been sent. We will give a bottle of magnesium citrate to 8 with constipation. She is instructed to follow-up with her primary care physician for recheck in 1-2 days. Return parameters were discussed in detail. She verbalizes understanding and agrees with this plan. - Lab Data Result diagrams: 01/22/20 21:58 01/22/20 21:58 Lab Results 01/22/20 01/22/20 01/22/20 Range/Units 21:58 21:58 21:58 WBC 9.1 (3.8-10.6) k/uL RBC 4.65 (3.80-5.40) m/uL Hgb 13.5 (11.4-16.0) gm/dL Hct 41.2 (34.0-46.0) % MCV 88.6 (80.0-100.0) fL MCH 29.0 (25.0-35.0) pg MCHC 32.7 (31.0-37.0) g/dL RDW 14.0 (11.5-15.5) % Plt Count 291 (150-450) k/uL Neutrophils % 70 % Lymphocytes % 20 % Monocytes % 6 % Eosinophils % 1 % Basophils % 1 % Neutrophils # 6.4 (1.3-7.7) k/uL Lymphocytes # 1.8 (1.0-4.8) k/uL Monocytes # 0.6 (0-1.0) k/uL Eosinophils # 0.1 (0-0.7) k/uL Basophils # 0.1 (0-0.2) k/uL Sodium 137 (137-145) mmol/L Potassium 4.5 (3.5-5.1) mmol/L Chloride 104 (98-107) mmol/L Carbon Dioxide 26 (22-30) mmol/L Anion Gap 7 mmol/L BUN 15 (7-17) mg/dL Creatinine 0.83 (0.52-1.04) mg/dL Est GFR (CKD-EPI)AfAm >90 (>60 ml/min/1.73 sqM) Est GFR (CKD-EPI)NonAf 79 (>60 ml/min/1.73 sqM) Glucose 107 H (74-99) mg/dL Calcium 9.6 (8.4-10.2) mg/dL Total Bilirubin 0.6 (0.2-1.3) mg/dL AST 26 (14-36) U/L ALT 14 (4-34) U/L Alkaline Phosphatase 70 (38-126) U/L Total Protein 7.5 (6.3-8.2) g/dL Albumin 4.5 (3.5-5.0) g/dL Amylase 45 (30-110) U/L Lipase 51 (23-300) U/L Urine Color Yellow Urine Appearance Cloudy H (Clear) Urine pH 6.0 (5.0-8.0) Ur Specific [place] 1.020 (1.001-1.035) Urine Protein 2+ H (Negative) Urine Glucose (UA) Negative (Negative) Urine Ketones Negative (Negative) Urine Blood Large (Negative) Urine Nitrite Negative (Negative) Urine Bilirubin Negative (Negative) Urine Urobilinogen <2.0 (<2.0) mg/dL Ur Leukocyte Esterase Large (Negative) Urine RBC >182 H (0-5) /hpf Urine WBC >182 H (0-5) /hpf Urine Bacteria Occasional H (None) /hpf Urine Mucus Rare H (None) /hpf - Radiology Data Radiology results: report reviewed, image reviewed CT abdomen and pelvis with contrast was obtained. Report was reviewed in its entirety. Impression by Dr. Doyle shows constipation. This appears incr eased compared to old exam. Mild sigmoid diverticulosis without diverticulitis. No renal stone or obstruction. Disposition Clinical Impression: Urinary tract infection, Abdominal pain Disposition: HOME SELF-CARE Condition: Good Instructions (If sedation given, give patient instructions): Urinary Tract Infection in Women (ED), Abdominal Pain (ED) Additional Instructions: Take medications as directed. Follow up with her primary care physician for rec heck in 1-2 days. Return to the emergency department immediately for any new, worsening, or concerning symptoms. Prescriptions: Sulfamethoxazole/Trimethoprim [Bactrim DS 800-160 mg] 1 each PO BID #20 tablet Is patient prescribed a controlled substance at d/c from ED?: No Referrals: [facility] [Primary Care Provider] - 1-2 days Time of Disposition: 23:40
--- NOTE | 2020-01-22 23:15 | CT ---
EXAMINATION TYPE: CT abdomen pelvis w con DATE OF EXAM: 01/22/2020 COMPARISON: 09/25/2014 HISTORY: Abdomen pain Hx renal stones. CT DLP: 738 mGycm Automated exposure control for dose reduction was used. CONTRAST: Performed with IV Contrast, patient injected with 100 mL of Isovue 300. Lung bases are clear. There is no pleural effusion. Heart size is normal. There is no pericardial eff usion. Liver shows no focal defect. Spleen is intact. Stomach is intact. There is no evidence of pancreatic mass. There are clips from cholecystectomy. The bile ducts are not dilated. There is no adrenal mass. There is satisfactory contrast opacification of the kidneys. There is no hy dronephrosis. Ureters are not dilated. Delayed images show normal renal excretion. There is no retrop eritoneal adenopathy. Bladder is almost empty. Uterus is anteverted. There is no inguinal hernia. Brisbin caesar appears normal. There is no free fluid in the pelvis. There is no evidence of a pelvic mass. Ther e is retained fecal material throughout the large bowel. Appendix is not definitely seen. There is no sign of thickened appendix. There is L4-5 degenerative disc space narrowing and spur formation. There is no lumbar compression fr acture. The bony pelvis appears intact. The hip joints are intact. There is hypertrophic acetabular s pur formation in both hip joints. IMPRESSION: Constipation. This appears increased compared to old exam. Mild sigmoid diverticulosis without divert iculitis. No renal stone or obstruction.
[2020-01-22] MEDS ORDERED: MAGNESIUM CITRATE 296 ML BOTTLE PO ONE (23:19)
[2020-01-22] MEDS ORDERED: SULFAMETH-TMP DS STARTER PACK 2 TAB BTL PO STA (23:19)
[2020-01-22 23:36] VITALS: BP 110/73; PULSE 83; RESP 16
== END 2020-01-22 23:54 | disposition home or self-care (01) ==
LOC: EC 21:11
DX: N39.0 Urinary tract infection, site not specified (principal); K59.00 Constipation, unspecified; K57.30 Diverticulosis of large intestine without perforation or abscess without bleeding; I10 Essential (primary) hypertension; F41.9 Anxiety disorder, unspecified; F31.9 Bipolar disorder, unspecified; Z79.899 Other long term (current) drug therapy; Z88.1 Allergy status to other antibiotic agents; Z90.49 Acquired absence of other specified parts of digestive tract
CPT/HCPCS: 36415; 80053; 82150; 83690; 85025; 81001; 87086; 74177; 99284; 96374; 96361 ×2; S4990; J1885; Q9967; 87077; 87186